=== PATIENT | female | born 1930 | race Caucasian/White ===

== ENCOUNTER 2016-10-16 21:20 | Emergency (ER) | payer OTHER ==
[2016-10-16 21:31] VITALS: BP 140/83; PULSE 69; TEMP 97.6; BMI 28.2
--- NOTE | 2016-10-16 22:26 | PDOC ---
History of Present Illness - General History Source: Patient Exam Limitations: No Limitations - History of Present Illness Initial Comments: 10/17/16 00:02 The patient is an 86 year old female with history of hypertension, hyperlipidemia, diabetes, COPD, GERD, emphysema, and dementia who presents to the ED with vomiting and abdominal pain. As per daughter, the patient was drinking hot chocolate with bread and shortly after she started vomiting. She reports 3 episodes of vomiting since 5 pm today. She reports generalized weakness and chills. She notes that she is feeling gassy. She notes that she did not get the flu shot this year. She denies fever, diarrhea, constipation, dysuria, hesitancy, urgency or hematuria. Surgical history: appendicitis, uterine fibroid PCP - Dr. Kendrick <Angela Dodson - Last Filed: 10/17/16 00:02> <Venecia Mederos - Last Filed: 10/17/16 04:51> - General Chief Complaint: Nausea/Vomiting Stated Complaint: VOMITING/SHAKING Time Seen by Provider: 10/16/16 22:26 Past History <Angela Dodson - Last Filed: 10/17/16 00:02> - Past Medical History COPD: Yes Diabetes: Yes GI Disorders: Yes (GERD) HTN: Yes Hypercholesterolemia: Yes Suicide Attempt (Hx): No - Surgical History Abdominal Surgery: Yes (FIBROID REMOVED) Appendectomy: Yes - Immunization History Immunization Up to Date: No - Psycho/Social/Smoking Cessation Hx Anxiety: No Suicidal Ideation: No Smoking Status: No Smoking History: Never smoked Have you smoked in the past 12 months: No Number of Cigarettes Smoked Daily: 0 If you are a former smoker, when did you quit?: 30 years ago Information on smoking cessation initiated: No Hx Alcohol Use: No Drug/Substance Use Hx: No Substance Use Type: None Hx Substance Use Treatment: No <Venecia Mederos - Last Filed: 10/17/16 04:51> - Past Medical History Allergies/Adverse Reactions: Allergies Allergy/AdvReac Type Severity Reaction Status Date / Time No Known Allergies Allergy Verified 10/16/16 21:27 Home Medications: Ambulatory Orders Aspirin [ASA -] 81 mg PO DAILY 10/21/15 Quetiapine Fumarate [Seroquel -] 25 mg PO HS 10/21/15 Ranitidine [Zantac -] 150 mg PO DAILY 10/21/15 Rivastigmine Tartrate [Rivastigmine] 4.5 mg PO DAILY 10/21/15 Simvastatin [Zocor -] 20 mg PO DAILY 10/21/15 Trazodone HCl [Desyrel -] 50 mg PO HS 10/21/15 Valsartan [Diovan] 160 mg PO DAILY 10/21/15 Cefuroxime Axetil [Ceftin -] 500 mg PO BID #10 tablet 10/23/15 Metoclopramide HCl [Reglan -] 10 mg PO TID #21 tablet 10/17/16 Review of Systems - Review of Systems Able to Perform ROS?: Yes Comments:: 10/17/16 00:03 GENERAL/CONSTITUTIONAL: +weakness. No fever or chills. HEAD, EYES, EARS, NOSE AND THROAT: No change in vision. No ear pain or discharge. No sore throat. CARDIOVASCULAR: No chest pain or shortness of breath. RESPIRATORY: No cough, wheezing, or hemoptysis. GASTROINTESTINAL: +nausea, +vomiting. No diarrhea or constipation. GENITOURINARY: No dysuria, frequency, or change in urination. MUSCULOSKELETAL: No joint or muscle swelling or pain. No neck or back pain. SKIN: No rash NEUROLOGIC: No headache, vertigo, loss of consciousness, or change in strength/ sensation. ENDOCRINE: No increased thirst. No abnormal weight change. HEMATOLOGIC/LYMPHATIC: No anemia, easy bleeding, or history of blood clots. ALLERGIC/IMMUNOLOGIC: No hives or skin allergy. <Angela Dodson - Last Filed: 10/17/16 00:02> *Physical Exam - Vital Signs Last Vital Signs Temp Pulse Resp BP Pulse Ox 97.6 F 69 14 140/83 98 10/16/16 21:27 10/16/16 21:27 10/16/16 21:27 10/16/16 21:27 10/16/16 21:27 - Physical Exam Comments: 10/17/16 00:04 GENERAL: Awake, alert, and fully oriented, in no acute distress HEAD: No signs of trauma EYES: PERRLA, EOMI, sclera anicteric, conjunctiva clear ENT: Auricles normal inspection, hearing grossly normal, nares patent, oropharynx clear without exudates. Moist mucosa NECK: Normal ROM, supple, no lymphadenopathy, JVD, or masses LUNGS: Breath sounds equal, clear to auscultation bilaterally. No wheezes, and no crackles HEART: Regular rate and rhythm, normal S1 and S2, no murmurs, rubs or gallops ABDOMEN: Soft, nontender, normoactive bowel sounds. No guarding, no rebound. No masses EXTREMITIES: Normal range of motion, no edema. No clubbing or cyanosis. No cords, erythema, or tenderness NEUROLOGICAL: Cranial nerves II through XII grossly intact. Normal speech, normal gait SKIN: Warm, Dry, normal turgor, no rashes or lesions noted. <Angela Dodson - Last Filed: 10/17/16 00:02> - Vital Signs Last Vital Signs Temp Pulse Resp BP Pulse Ox 97.6 F 69 14 140/83 98 10/16/16 21:27 10/16/16 21:27 10/16/16 21:27 10/16/16 21:27 10/16/16 21:27 <Venecia Mederos - Last Filed: 10/17/16 04:51> ED Treatment Course - LABORATORY CBC & Chemistry Diagram: 10/16/16 23:30 10/16/16 23:30 - ADDITIONAL ORDERS Additional order review: 10/16/16 23:30 RBC 4.56 MCV 89.9 MCHC 32.9 RDW 14.1 MPV 7.9 Neutrophils % 90.3 H Lymphocytes % 6.1 L Monocytes % 2.8 L Eosinophils % 0.3 D Basophils % 0.5 - Medications Given in the ED: ED Medications Discontinued Medications Generic Name Dose Route Start Last Admin Trade Name Luis PRN Reason Stop Dose Admin Famotidine/Sodium Chloride 50 mls @ 100 mls/hr 10/16/16 23:26 10/16/16 23:56 Pepcid 20 Mg Premixed Ivpb - IVPB 10/16/16 23:55 100 mls/hr ONCE ONE Administration Metoclopramide HCl 10 mg 10/16/16 23:26 10/16/16 23:48 Reglan Injection - IVPB 10/16/16 23:27 10 mg ONCE ONE Administration Sodium Chloride 1,000 ml 10/16/16 23:26 10/16/16 23:47 Normal Saline - IV 10/16/16 23:27 1,000 ml ONCE ONE Administration <Angela Dodson - Last Filed: 10/17/16 00:02> - LABORATORY CBC & Chemistry Diagram: 10/16/16 23:30 10/16/16 23:30 <Venecia Mederos - Last Filed: 10/17/16 04:51> Medical Decision Making - Medical Decision Making 10/17/16 04:47 Pt vomited a few times after drinking cocoa and eating bread. She experienced chills. SHe wants to make sure she is okay. She states that she has no generalized weakness. SHe has no diarrhea, and no fever. SHe has no systemic symptoms. She was hydrated in the ER with 1L NSS and she is feeling better ( urine demonstrated ketones in the urine). All labs are normal. CXR is normal. 10/17/16 04:50 Pt discharged home with her family. <Venecia Mederos - Last Filed: 10/17/16 04:51> *DC/Admit/Observation/Transfer - Attestations Scribe Attestion: 10/17/16 00:04 Documentation prepared by DELANO Vasques, acting as medical insurance verifier for Venecia Mederos MD. <Angela Dodson - Last Filed: 10/17/16 00:02> - Discharge Dispostion Admit: No <Venecia Mederos - Last Filed: 10/17/16 04:51> Diagnosis at time of Disposition: Nausea & vomiting - Discharge Dispostion Disposition: HOME Condition at time of disposition: Stable - Prescriptions Prescriptions: Metoclopramide HCl [Reglan -] 10 mg PO TID #21 tablet - Referrals Referrals: Chivo Kendrick [Primary Care Provider] - - Patient Instructions Printed Discharge Instructions: DI for Nausea -- Adult, DI for Vomiting -- Adult
[2016-10-16] MEDS ORDERED: SODIUM CHLORIDE 0.9% 500 ML INFUS.BAG IV ONE (23:26)
[2016-10-16] MEDS ORDERED: METOCLOPRAMIDE HCL INJECTION 10 MG/2 ML VIAL IVPB ONE (23:26)
[2016-10-16] MEDS ORDERED: FAMOTIDINE 20 MG/50 ML IVPB 50 ML IVPB ONE ×2 (23:26→23:37)
[2016-10-16] MEDS ORDERED: METOCLOPRAMIDE HCL INJECTION 10 MG/2 ML VIAL ONE (23:36)
[2016-10-16 23:55] LABS: BASOPHIL 0.5 % (0-2.0); EOSINOPHIL 0.3 % (0-4.5); MCH 29.6 pg (25.7-33.7); MCHC 32.9 g/dl (32.0-36.0); MEAN CELL VOLUME 89.9 fl (80-96); MEAN PLT VOLUME 7.9 fl (7.5-11.1); NEUTROPHILS 90.3 % (42.8-82.8); PLATELET COUNT 253 K/MM3 (134-434); RDW 14.1 % (11.6-15.6); WHITE BLOOD COUNT 7.9 K/mm3 (4.0-10.0)
[2016-10-16 23:58] LABS: URINE APPEARANCE CLEAR; URINE BILIRUBIN NEGATIVE (NEGATIVE); URINE BLOOD NEGATIVE (NEGATIVE); URINE COLOR YELLOW; URINE GLUCOSE (UA) NEGATIVE (NEGATIVE); URINE KETONE 1+ (NEGATIVE); URINE LEUK ESTERASE NEGATIVE (NEGATIVE); URINE NITRITE NEGATIVE (NEGATIVE); URINE UROBILINOGEN NEGATIVE E.U./dl (0.2-1.0)
[2016-10-17 00:18] LABS: ALBUMIN 4.2 g/dl (3.4-5.0); ALK PHOS 87 U/L (45-117); ANION GAP 9 (8-16); BILIRUBIN,TOTAL 0.4 mg/dL (0.2-1.0); CALCIUM 8.8 mg/dL (8.5-10.1); CO2 29 mmol/L (21-32); CREATININE 0.6 mg/dL (0.55-1.02); GLUCOSE,RANDOM 127 mg/dL (74-106); SGOT/AST 20 U/L (15-37); SGPT/ALT 18 U/L (12-78)
[2016-10-17 00:22] LABS: URINE PROTEIN 1+ (NEGATIVE)
[2016-10-17 00:25] LABS: CHOLESTEROL 162 mg/dL (50-200)
[2016-10-17 00:28] LABS: TROPONIN I 0.04 ng/ml (0.00-0.05)
[2016-10-17 00:49] LABS: URINE BACTERIA RARE /hpf (NONE SEEN); URINE MUCUS MODERATE; URINE RBC 43 /hpf (0-3); URINE WBC 2 /hpf (3-5)
[2016-10-17 19:44] LABS: LDL CHOLESTEROL (ONLY SJRH) 85 mg/dL (5-100)
== END 2016-10-17 01:56 | disposition home or self-care (01) ==
LOC: JER 21:20
PROC: 3E033GC Introduction of Other Therapeutic Substance into Peripheral Vein, Percutaneous Approach (ICD-10-PCS; principal; 2016-10-16)
DX: R11.2 Nausea with vomiting, unspecified (principal); I10 Essential (primary) hypertension; E11.9 Type 2 diabetes mellitus without complications; E78.00 Pure hypercholesterolemia, unspecified; J44.9 Chronic obstructive pulmonary disease, unspecified; K21.9 Gastro-esophageal reflux disease without esophagitis
CPT/HCPCS: 36415; 71010-TC; 80053; 80061; 81003; 81015; 82550; 83036; 83721; 84484; 85025; 96365; 96375; 99281-25; 99282-25

== ENCOUNTER 2017-05-02 12:30 | Emergency (ER) | payer OTHER ==
[2017-05-02 12:43] VITALS: BP 105/64; PULSE 78; TEMP 98.7; BMI 29.1
--- NOTE | 2017-05-02 13:01 | PDOC ---
History of Present Illness <Bethany Oliver - Last Filed: 05/02/17 16:11> - General History Source: Patient Exam Limitations: No Limitations, Dementia - History of Present Illness Initial Comments: 05/02/17 13:01 Patient is an 87 year old female with history of dementia, COPD, DM, HTN, HLD and GERD presenting with decreased appetite, poor PO intake, nausea, vomiting and spitting for several weeks. According to the family the patient has a long history with a poor appetite that has recently gotten worse. They claim patient had no PO for the last 4 days and anything she attempts to eat she spits out. Also endorse patient refusal to swallow secretions. Patient claims she doesn't have any problems swallowing but does not want to eat because she does not have an appetite. Patient was seen by PCP last week and diagnosed with a UTI but has refused to take the antibiotic. Patient endorses abdominal pain; denies fever, chills, sob, cp and dysurea. <Skyler Engel - Last Filed: 05/08/17 10:57> - General Chief Complaint: Pain Stated Complaint: PAIN Time Seen by Provider: 05/02/17 12:57 Past History <Bethany Oliver - Last Filed: 05/02/17 16:11> - Past Medical History COPD: Yes Dementia: Yes Diabetes: Yes GI Disorders: Yes (GERD) HTN: Yes Hypercholesterolemia: Yes Suicide Attempt (Hx): No - Surgical History Abdominal Surgery: Yes (FIBROID REMOVED) Appendectomy: Yes - Immunization History Immunization Up to Date: No - Psycho/Social/Smoking Cessation Hx Anxiety: No Suicidal Ideation: No Smoking Status: No Smoking History: Never smoked Have you smoked in the past 12 months: No Number of Cigarettes Smoked Daily: 0 If you are a former smoker, when did you quit?: 30 years ago Information on smoking cessation initiated: No Hx Alcohol Use: No Drug/Substance Use Hx: No Substance Use Type: None Hx Substance Use Treatment: No <Skyler Engel - Last Filed: 05/08/17 10:57> - Past Medical History Allergies/Adverse Reactions: Allergies Allergy/AdvReac Type Severity Reaction Status Date / Time No Known Allergies Allergy Verified 05/02/17 12:40 Home Medications: Ambulatory Orders Aspirin [ASA -] 81 mg PO DAILY 10/21/15 Ranitidine [Zantac -] 150 mg PO DAILY 10/21/15 Simvastatin [Zocor -] 20 mg PO DAILY 10/21/15 Trazodone HCl [Desyrel -] 50 mg PO HS 10/21/15 Valsartan [Diovan] 160 mg PO DAILY 10/21/15 Donepezil HCl [Aricept -] 10 mg PO DAILY 05/02/17 Review of Systems - Review of Systems Able to Perform ROS?: Yes Is the patient limited Turkmen proficient: Yes Constitutional: Yes: Loss of Appetite. No: Chills, Fever, Weight Stable ( Family endorsed weight loss) Respiratory: No: Cough, Shortness of Breath Cardiac (ROS): No: Chest Pain ABD/GI: Yes: Nausea, Vomiting. No: Constipated, Diarrhea : No: Dysuria <Skyler Engel - Last Filed: 05/08/17 10:57> *Physical Exam - Vital Signs Last Vital Signs Temp Pulse Resp BP Pulse Ox 98.7 F 78 18 105/64 100 05/02/17 12:40 05/02/17 12:40 05/02/17 12:40 05/02/17 12:40 05/02/17 12:40 <Bethany Oliver - Last Filed: 05/02/17 16:11> - Vital Signs Last Vital Signs Temp Pulse Resp BP Pulse Ox 98.7 F 78 18 105/64 100 05/02/17 12:40 05/02/17 12:40 05/02/17 12:40 05/02/17 12:40 05/02/17 12:40 - Physical Exam General Appearance: Yes: Nourished, Appropriately Dressed, Other. No: Apparent Distress HEENT: positive: EOMI, ZACK, Normal ENT Inspection, Other (Moist oral mucosa, Patient spitting secretions, Refuses to swallow) Neck: positive: Supple. negative: Lymphadenopathy (R), Lymphadenopathy (L) Respiratory/Chest: positive: Lungs Clear, Normal Breath Sounds. negative: Respiratory Distress Cardiovascular: positive: Regular Rhythm, Regular Rate. negative: Edema Gastrointestinal/Abdominal: positive: Normal Bowel Sounds, Tender (diffusly, reduced on distraction), Soft. negative: Distended, Guarding, Rebound Musculoskeletal: positive: Normal Inspection, CVA Tenderness (R). negative: CVA Tenderness (L) Neurologic: positive: nurse practitioner physicians assistant II-XII NML intact, Fully Oriented, Alert, Normal Mood/ Affect, Other (Patient refuses to swallow secretions) <Skyler Engel - Last Filed: 05/08/17 10:57> ED Treatment Course - LABORATORY CBC & Chemistry Diagram: 05/02/17 14:30 05/02/17 14:30 - ADDITIONAL ORDERS Additional order review: Laboratory Results 05/02/17 05/02/17 15:04 14:30 Sodium 138 Potassium 4.8 D Chloride 101 Carbon Dioxide 28 Anion Gap 9 BUN 18 D Creatinine 0.8 D Creat Clearance w eGFR > 60 Random Glucose 128 H Calcium 9.2 Total Bilirubin 0.4 AST 20 ALT 19 Alkaline Phosphatase 80 Total Protein 7.4 Albumin 4.5 Urine Color Yellow Urine Appearance Slcloudy Urine pH 5.0 Urine Protein Negative Urine Glucose (UA) Negative Urine Ketones Negative Urine Blood Negative Urine Nitrite Negative Urine Bilirubin Negative Urine Urobilinogen 2.0 H Ur Leukocyte Esterase Negative 05/02/17 14:30 RBC 4.74 MCV 91.0 MCHC 32.4 RDW 14.4 MPV 7.6 Neutrophils % 73.7 Lymphocytes % 15.8 D Monocytes % 7.5 D Eosinophils % 2.0 D Basophils % 1.0 - Medications Given in the ED: ED Medications Discontinued Medications Generic Name Dose Route Start Last Admin Trade Name Freq PRN Reason Stop Dose Admin Sodium Chloride 1,000 mls @ 1,000 mls/hr 05/02/17 13:39 05/02/17 15:10 Normal Saline - IV 05/02/17 14:38 1,000 mls/hr ASDIR STA Administration <eBthany Oliver - Last Filed: 05/02/17 16:11> - LABORATORY CBC & Chemistry Diagram: 05/02/17 14:30 05/02/17 14:30 - RADIOLOGY Radiograph Interpretation: [id number] CT/ABDOMEN PELVIS CT WITH CONTR Abdomen and pelvis CT (with intravenous contrast) Clinical information: abdominal pain, nausea, emesis Multiplanar imaging was performed following the intravenous administration of nonionic contrast. As requested oral contrast was not administered. Evaluation is somewhat limited due to persistent motion artifact. The patient was apparently unable to cooperate at this time. There is no obvious evidence of pneumoperitoneum. No free intraperitoneal fluid or bowel obstruction is visualized. Allowing for motion artifact no definite interval change is identified in comparison to a prior CT study of 09/21/2015. A right inguinal hernia is noted containing nondilated small bowel. A left inguinal hernia is seen containing fat only. There is extensive left-sided colonic diverticulosis without obvious acute diverticulitis. 0.7 cm right hepatic lobe cyst. The spleen, pancreas, gallbladder, adrenal glands and kidneys demonstrate no obvious abnormality. Absent versus atrophic uterus. No obvious intrapelvic pathology is seen. There is no aortic aneurysm. No definite lymphadenopathy is noted. The appendix is not definitely visualized. No obvious indirect CT signs of acute appendicitis are seen. Impression: No obvious acute pathology is identified allowing for motion artifact as discussed above. There has been no definite interval change comparison to a prior CT study 2015. Right inguinal hernia containing nondilated small bowel. Left inguinal hernia containing fat only. Extensive colonic diverticulosis. <Skyler Engel - Last Filed: 05/08/17 10:57> Medical Decision Making - Medical Decision Making 05/02/17 16:11 focused ED screening ultasound renal, / GB indication L flank pain right upper quadrant scanned with curvilinear probe. no gallstones, no wall thickening or edema. no pericholecystic fluid, neg sonographic tinajero's. wall : 2 mm CBD : <2mm impression: normal gallbladder renal ultrasound , indication : flank pain bilateral kidneys scanned in two planes. no cyst, no hydronephrosis. bladder nondistended impression: normal renal ultrasound aorta scanned in transverse and longitudinal views proximal , mid and distal aorta all measured less < 2cm impression: no AAA, normal aorta ultrasound. cirrex/ gorge <Bethany Oliver - Last Filed: 05/02/17 16:11> - Medical Decision Making 05/02/17 13:01 87 year old female with history of dementia and GERD presenting with several weeks of decreased PO, nausea, vomiting and perfuse spitting. Ddx includes but is not limited to upper GI obstruction, strictures, SBO, GERD, psychogenic, Fluids CBC CMP UA CT Abdomen and Pelvis with contrast, oral contrast if tolerated US Right Renal to evaluate for Pyelo 05/02/17 14:05 Patient easily tolerated 1/2 pint OJ without coughing, regurgitation or complaint 05/02/17 14:40 Patient finished the oral contrast without complaint. 05/02/17 16:19 CBC WBC 5.9 K/mm3 (4.0-10.0) 05/02/17 14:30 RBC 4.74 M/mm3 (3.60-5.2) 05/02/17 14:30 Hgb 14.0 GM/dL (10.7-15.3) 05/02/17 14:30 Hct 43.2 % (32.4-45.2) 05/02/17 14:30 MCV 91.0 fl (80-96) 05/02/17 14:30 MCH 29.5 pg (25.7-33.7) 05/02/17 14:30 MCHC 32.4 g/dl (32.0-36.0) 05/02/17 14:30 RDW 14.4 % (11.6-15.6) 05/02/17 14:30 Plt Count 291 K/MM3 (134-434) 05/02/17 14:30 MPV 7.6 fl (7.5-11.1) 05/02/17 14:30 Neutrophils % 73.7 % (42.8-82.8) 05/02/17 14:30 Lymphocytes % 15.8 % (8-40) D 05/02/17 14:30 Monocytes % 7.5 % (3.8-10.2) D 05/02/17 14:30 Eosinophils % 2.0 % (0-4.5) D 05/02/17 14:30 Basophils % 1.0 % (0-2.0) 05/02/17 14:30 Within normal limits CMP Sodium 138 mmol/L (136-145) 05/02/17 14:30 Potassium 4.8 mmol/L (3.5-5.1) D 05/02/17 14:30 Chloride 101 mmol/L (98-107) 05/02/17 14:30 Carbon Dioxide 28 mmol/L (21-32) 05/02/17 14:30 Anion Gap 9 (8-16) 05/02/17 14:30 BUN 18 mg/dL (7-18) D 05/02/17 14:30 Creatinine 0.8 mg/dL (0.55-1.02) D 05/02/17 14:30 Creat Clearance w eGFR > 60 (>60) 05/02/17 14:30 Random Glucose 128 mg/dL (74-106) H 05/02/17 14:30 Calcium 9.2 mg/dL (8.5-10.1) 05/02/17 14:30 Total Bilirubin 0.4 mg/dL (0.2-1.0) 05/02/17 14:30 AST 20 U/L (15-37) 05/02/17 14:30 ALT 19 U/L (12-78) 05/02/17 14:30 Alkaline Phosphatase 80 U/L (45-117) 05/02/17 14:30 Total Protein 7.4 g/dl (6.4-8.2) 05/02/17 14:30 Albumin 4.5 g/dl (3.4-5.0) 05/02/17 14:30 Grossly within normal limits, no concerns Urine Test Results Urine Color Yellow 05/02/17 15:04 Urine Appearance Slcloudy 05/02/17 15:04 Urine pH 5.0 (5.0-8.0) 05/02/17 15:04 Urine Protein Negative (NEGATIVE) 05/02/17 15:04 Urine Glucose (UA) Negative (NEGATIVE) 05/02/17 15:04 Urine Ketones Negative (NEGATIVE) 05/02/17 15:04 Urine Blood Negative (NEGATIVE) 05/02/17 15:04 Urine Nitrite Negative (NEGATIVE) 05/02/17 15:04 Urine Bilirubin Negative (NEGATIVE) 05/02/17 15:04 Ur Leukocyte Esterase Negative (NEGATIVE) 05/02/17 15:04 No indication of infection CT Impression: No obvious acute pathology, no definite interval change from prior CT study 09/21/2015. Patient is PO tolerant with no acute abnormalities, no dysphagia, recommended PCP follow up, return precautions given <Skyler Engel - Last Filed: 05/08/17 10:57> *DC/Admit/Observation/Transfer <Bethany Oliver - Last Filed: 05/02/17 16:11> - Discharge Dispostion Admit: No - Attestations Physician Attestion: 05/02/17 19:27 I, Dr. Skyler Engel, attest that this document has been prepared under my direction and personally reviewed by me in its entirety. I further attest, that it accurately reflects all work, treatment, procedures and medical decision -making performed by me. <Skyler Engel - Last Filed: 05/08/17 10:57> Diagnosis at time of Disposition: Poor appetite Abdominal pain Qualifiers: Abdominal location: generalized Qualified Code(s): R10.84 - Generalized abdominal pain - Referrals Referrals: Chivo Kendrick [Primary Care Provider] - - Patient Instructions Printed Discharge Instructions: DI for Abdominal Pain-Adult, DI for Poor Appetite Additional Instructions: Thank you for trusting us with your health care today. I hope you were satisfied with the care you received. Often in the emergency department we do not find the exact cause of a problem but focus on ruling out any serious problems. The lab work and imaging we performed today did not show anything that was immediately concerning. However, it is important that you follow up with a primary care physician for a more complete workup than we are able to do in the emergency department. You can provide your doctor with the lab and imaging reports we are providing to you. As we discussed, please return to the emergency department if your symptoms significantly worsen or you develop any concerning signs including fever, confusion or headache that will not resolve with medication. If you are unable to safely drive yourself, please call 911 immediately. Print Language: GREEK
[2017-05-02] MEDS ORDERED: SODIUM CHLORIDE 1,000 ML IV STA (13:39)
[2017-05-02 14:54] LABS: MCH 29.5 pg (25.7-33.7); MCHC 32.4 g/dl (32.0-36.0); MEAN PLT VOLUME 7.6 fl (7.5-11.1); NEUTROPHILS 73.7 % (42.8-82.8); PLATELET COUNT 291 K/MM3 (134-434); RDW 14.4 % (11.6-15.6); WHITE BLOOD COUNT 5.9 K/mm3 (4.0-10.0)
[2017-05-02 15:07] LABS: ALBUMIN 4.5 g/dl (3.4-5.0); ALK PHOS 80 U/L (45-117); ANION GAP 9 (8-16); BILIRUBIN,TOTAL 0.4 mg/dL (0.2-1.0); CALCIUM 9.2 mg/dL (8.5-10.1); CO2 28 mmol/L (21-32); CREATININE 0.8 mg/dL (0.55-1.02); GLUCOSE,RANDOM 128 mg/dL (74-106); SGOT/AST 20 U/L (15-37); SGPT/ALT 19 U/L (12-78); TOT PROT 7.4 g/dl (6.4-8.2)
--- NOTE | 2017-05-02 15:21 | PDOC ---
Attending Attestation - Resident Resident Name: Toro,Jon - ED Attending Attestation I have performed the following: I have examined & evaluated the patient, The case was reviewed & discussed with the resident, I agree w/resident's findings & plan, Exceptions are as noted - HPI HPI: 05/02/17 15:16 87 F with HTN, HLD, DM, COPD, GERD, dementia presents to ER with several weeks of decreased PO intake and spitting up. Per family, pt has had decreased appetite for a long time, but this has worsened recently. She has no desire to eat, and when she does, she often spits it out. Family denies that pt has vomited. Pt has not complained of abdominal pain. No abdominal distention. No F/ C. Of note, pt was diagnosed with a UTI last week but has not been able to take her antibiotics because she refuses to swallow them. - Physicial Exam PE: 05/02/17 15:21 "GENERAL: Awake, alert, and fully oriented, in no acute distress HEAD: No signs of trauma EYES: PERRLA, EOMI, sclera anicteric, conjunctiva clear ENT: Auricles normal inspection, hearing grossly normal, nares patent, oropharynx clear without exudates. Moist mucosa NECK: Normal ROM, supple, no lymphadenopathy, JVD, or masses LUNGS: Breath sounds equal, clear to auscultation bilaterally. No wheezes, and no crackles HEART: Regular rate and rhythm, normal S1 and S2, no murmurs, rubs or gallops ABDOMEN: Soft, mild diffuse TTP, normoactive bowel sounds. No guarding, no rebound. No masses, + R CVAT EXTREMITIES: Normal range of motion, no edema. No clubbing or cyanosis. No cords, erythema, or tenderness NEUROLOGICAL: Cranial nerves II through XII grossly intact. Normal speech, normal gait SKIN: Warm, Dry, normal turgor, no rashes or lesions noted. - Medical Decision Making 05/02/17 15:21 87 F with poor PO tolerance. Unclear from history whether pt is vomiting or simply spitting. Given diffuse abdominal tenderness, will obtain CTAP to r/o obstructive process. - Labs, UA - CTAP
[2017-05-02 15:45] LABS: URINE APPEARANCE SLCLOUDY; URINE BILIRUBIN NEGATIVE (NEGATIVE); URINE BLOOD NEGATIVE (NEGATIVE); URINE COLOR YELLOW; URINE GLUCOSE (UA) NEGATIVE (NEGATIVE); URINE KETONE NEGATIVE (NEGATIVE); URINE LEUK ESTERASE NEGATIVE (NEGATIVE); URINE NITRITE NEGATIVE (NEGATIVE); URINE PROTEIN NEGATIVE (NEGATIVE)
== END 2017-05-02 19:41 | disposition home or self-care (01) ==
LOC: JER 12:30
PROC: 3E0337Z Introduction of Electrolytic and Water Balance Substance into Peripheral Vein, Percutaneous Approach (ICD-10-PCS; principal; 2017-05-02)
DX: R10.84 Generalized abdominal pain (principal); R63.0 Anorexia; Z68.29 Body mass index [BMI] 29.0-29.9, adult; I10 Essential (primary) hypertension; E11.9 Type 2 diabetes mellitus without complications; K21.9 Gastro-esophageal reflux disease without esophagitis; E78.00 Pure hypercholesterolemia, unspecified; J44.9 Chronic obstructive pulmonary disease, unspecified; F03.90 Unspecified dementia, unspecified severity, without behavioral disturbance, psychotic disturbance, mood disturbance, and anxiety
CPT/HCPCS: 36415; 74177-TC; 80053; 81003; 85025; 99283-25

== ENCOUNTER 2017-12-03 17:35 | Inpatient (IN) | payer OTHER ==
[2017-12-03] MEDS ORDERED: SODIUM CHLORIDE 1,000 ML IV STA (18:07)
--- NOTE | 2017-12-03 18:35 | PDOC ---
History of Present Illness - General History Source: Patient, Family Exam Limitations: No Limitations <Nacho Paiz - Last Filed: 12/03/17 18:35> - General Exam Limitations: Dementia - History of Present Illness Initial Comments: 12/03/17 18:41 Patient is an 87 year old female with a history of dementia, COPD, DM, HTN, HLD and GERD who is presenting with syncopal episode today. Patients family member states that her was walking her to the bathroom when she fainted and fell. He was able to catch her and she did not hit her head. According to her family member, this has happened before 3-4 months ago. Family reports that she was out for 2 minutes but was confused when she woke up for about 1 minute. Family also reports decreased PO intake/appetite and sleep lately. Her family member denies cough, vomiting,and diarrhea. Allergies: NKDA Neurologist: Dr. Buchanan PCP: Chivo Kendrick <Nicki Osei - Last Filed: 12/03/17 18:41> <Venecia Mederos - Last Filed: 12/04/17 01:46> - General Chief Complaint: Syncope/Near Syncope Stated Complaint: WEAKNESS Time Seen by Provider: 12/03/17 17:47 Past History - Past Medical History COPD: Yes Dementia: Yes Diabetes: Yes GI Disorders: Yes (GERD) HTN: Yes Hypercholesterolemia: Yes - Surgical History Abdominal Surgery: Yes (FIBROID REMOVED) Appendectomy: Yes - Immunization History Immunization Up to Date: No - Suicide/Smoking/Psychosocial Hx Smoking Status: No Smoking History: Never smoked Have you smoked in the past 12 months: No Number of Cigarettes Smoked Daily: 0 If you are a former smoker, when did you quit?: 30 years ago Hx Alcohol Use: No Drug/Substance Use Hx: No Substance Use Type: None Hx Substance Use Treatment: No <Nacho Paiz - Last Filed: 12/03/17 18:35> <Nicki Osei - Last Filed: 12/03/17 18:41> <Venecia Mederos - Last Filed: 12/04/17 01:46> - Past Medical History Allergies/Adverse Reactions: Allergies Allergy/AdvReac Type Severity Reaction Status Date / Time No Known Allergies Allergy Verified 12/03/17 17:41 Home Medications: Ambulatory Orders Aspirin [ASA -] 81 mg PO DAILY 02/03/16 Ranitidine [Zantac -] 150 mg PO DAILY 10/21/15 Simvastatin [Zocor -] 20 mg PO DAILY 10/21/15 Valsartan [Diovan] 160 mg PO DAILY 10/21/15 traZODone HCL [Desyrel -] 50 mg PO HS 10/21/15 Donepezil HCl [Aricept -] 10 mg PO DAILY 05/02/17 Review of Systems - Review of Systems Able to Perform ROS?: No (limited due to dementia) <Nicki Osei - Last Filed: 12/03/17 18:41> *Physical Exam - Vital Signs Last Vital Signs Temp Pulse Resp BP Pulse Ox 97.9 F 58 L 18 107/62 98 12/03/17 17:43 12/03/17 17:43 12/03/17 17:43 12/03/17 17:43 12/03/17 17:43 <Nacho Paiz - Last Filed: 12/03/17 18:35> - Vital Signs Last Vital Signs Temp Pulse Resp BP Pulse Ox 97.9 F 58 L 18 107/62 98 12/03/17 17:43 12/03/17 17:43 12/03/17 17:43 12/03/17 17:43 12/03/17 17:43 - Physical Exam Comments: 12/03/17 18:42 GENERAL: Awake, alert, and oriented x 2 - her baseline. HEAD: No signs of trauma EYES: PERRLA, EOMI, sclera anicteric, conjunctiva clear ENT: Auricles normal inspection, hearing grossly normal, nares patent, oropharynx clear without exudates. Moist mucosa NECK: Normal ROM, supple, no lymphadenopathy, JVD, or masses LUNGS: Breath sounds equal, clear to auscultation bilaterally. No wheezes, and no crackles HEART: Regular rate and rhythm, normal S1 and S2, no murmurs, rubs or gallops ABDOMEN: Soft, nontender, normoactive bowel sounds. No guarding, no rebound. No masses EXTREMITIES: No edema. No clubbing or cyanosis. No cords, erythema, or tenderness. Strength 5/5 all 4 extremities. Moves all extremities spontaneously. NEUROLOGICAL: Cranial nerves II through XII grossly intact. SKIN: Warm, Dry, normal turgor, no rashes or lesions noted. <Nicki Osei - Last Filed: 12/03/17 18:41> - Vital Signs Last Vital Signs Temp Pulse Resp BP Pulse Ox 97.9 F 58 L 18 107/62 98 12/03/17 17:43 12/03/17 17:43 12/03/17 17:43 12/03/17 17:43 12/03/17 17:43 <Venecia Mederos - Last Filed: 12/04/17 01:46> Heart Score/ECG Review #1 ECG reviewed & interpreted by me at: 18:05 12/03/17 18:33 NSR 58, T wave flat III, avF, V5, no std/komal, QTC 459 msec <Nacho Paiz - Last Filed: 12/03/17 18:35> ED Treatment Course - RADIOLOGY Radiology Studies Ordered: Category Date Time Status HEAD CT WITHOUT CONTRAST [CT] Stat CT Scan 12/03/17 18:06 Ordered CHEST X-RAY PORTABLE* [RAD] Stat Radiology 12/03/17 18:06 Taken <Nacho Paiz - Last Filed: 12/03/17 18:35> - LABORATORY CBC & Chemistry Diagram: 12/03/17 20:42 12/03/17 20:42 - ADDITIONAL ORDERS Additional order review: Laboratory Results 12/03/17 12/03/17 20:42 20:42 PT with INR 11.20 INR 0.99 PTT (Actin FS) 26.2 L Sodium 144 Potassium 4.2 Chloride 110 H Carbon Dioxide 27 Anion Gap 7 L BUN 13 Creatinine 0.7 Creat Clearance w eGFR > 60 Random Glucose 122 H Calcium 7.5 L Phosphorus 3.5 Magnesium 2.1 Total Bilirubin 0.2 D AST 17 ALT 15 Alkaline Phosphatase 98 Creatine Kinase 47 Troponin I < 0.02 Total Protein 5.6 L Albumin 3.2 L 12/03/17 20:42 RBC 4.10 MCV 91.7 MCHC 33.6 RDW 14.2 MPV 7.5 Neutrophils % 83.7 H Lymphocytes % 9.3 D Monocytes % 5.6 Eosinophils % 0.9 Basophils % 0.5 - Medications Given in the ED: ED Medications Discontinued Medications Generic Name Dose Route Start Last Admin Trade Name Freq PRN Reason Stop Dose Admin Sodium Chloride 1,000 mls @ 1,000 mls/hr 12/03/17 18:07 12/03/17 18:35 Normal Saline - IV 12/03/17 19:06 1,000 mls/hr ASDIR STA Administration <Venecia Mederos - Last Filed: 12/04/17 01:46> Medical Decision Making - Medical Decision Making 12/03/17 18:33 A portion of this note was documented by scribe services under my direction. I have reviewed the details of the note, within reason, and agree with the documentation with the following case summary and management plan written by me. Patient treated in the ED. Nursing notes are reviewed and incorporated into the medical decision-making. Vital signs reviewed. Peripheral IV access obtained by the nurse, laboratory studies are drawn and sent, reviewed and interpreted by myself. Vital Signs Temp Pulse Resp BP Pulse Ox 97.9 F 58 L 18 107/62 98 12/03/17 17:43 12/03/17 17:43 12/03/17 17:43 12/03/17 17:43 12/03/17 17:43 87-year-old female with past medical history of hypertension, dementia presents with syncope. The patient was in her usual state health. Was with the patient's son-in-law when the patient suddenly syncopized for approximately 1 minute. Fell into the son-in-law's hands. No head trauma or injuries. This was weakness. No seizure-like activity. The patient woke up somewhat mildly confused but immediately Became back to baseline. No recent illnesses, fevers, chills, cough, vomiting, diarrhea. Patient reports chronic poor appetite but this is nothing new to her. Came to the ED for evaluation. Given her age and her risk factors, we'll need to rule out cardiac etiology. We' ll obtain labs, telemetry. Patient's clinical headache. We'll obtain a head CT. Ultimately admit the patient to hospital for telemetry monitoring and further evaluation. <Nacho Paiz - Last Filed: 12/03/17 18:35> - Medical Decision Making 12/03/17 21:26 Patient Name: RAVI HOYT THIS IS A PRELIMINARY REPORT FROM [facility] EXAM: CT Head wo IMAGES: 236 EXAM DATE AND TIME: 2017-12-03 20:14:15 HISTORY: 87 year-old woman with syncope and headaches. COMPARISON: Prior head CT conducted on: 04/13/2014. Prior study images not available on [facility] at this time. When these are submitted for comparison, an addendum will be generated. TECHNIQUE: Non-contrast axial images were obtained. Coronal and sagittal images were also generated. FINDINGS There are no intracranial hemorrhages, brain parenchymal contusion injuries, or imaged calvarial, facial or skull base fractures. There is no subcutaneous soft tissue swelling. There are no extra-axial fluid collections or evidence of an intra-axial mass lesion. The sulci and ventricles are moderately prominent, suggesting age related involutional changes. Multiple, scattered focal and patchy deep white matter chronic microvascular ischemic changes are noted in the frontal and parietal lobes, bilaterally. Cerebral rose/white matter differentiation is preserved; there is no clear evidence of an acute ischemic lesion at this time. Also noted, are multiple bubbles of gas within the cavernous sinuses, bilaterally, with some gas seen extending from the left sphenoid sinus to the left ophthalmic vein. Otherwise, orbital and petrous structures, the sella turcica, suprasellar cistern, paracavernous structures, cerebellopontine angles, and posterior fossa appear unremarkable. The paranasal and mastoid sinuses are clear. IMPRESSION: Multiple, scattered, deep cerebral white matter chronic microvascular ischemic changes. Moderate age related involutional changes. Also noted, are multiple bubbles of gas within the cavernous sinuses, bilaterally, with some gas seen extending from the left sphenoid sinus to the left ophthalmic vein. The study is otherwise unremarkable. No calvarial, facial or skull base fractures imaged on the current exam. No intracranial hemorrhages or brain parenchymal contusion injuries. THIS DOCUMENT HAS BEEN ELECTRONICALLY SIGNED 12/04/17 01:46 Pt admitted to telelmetry observation under the hospitalists. <Venecia Mederos - Last Filed: 12/04/17 01:46> *DC/Admit/Observation/Transfer <Nacho Paiz - Last Filed: 12/03/17 18:35> - Attestations Scribe Attestion: 12/03/17 18:44 Documentation prepared by Nicki Osei, acting as medical receptionist assistant for Nacho Paiz MD. <Nicki Osei - Last Filed: 12/03/17 18:41> - Discharge Dispostion Admit: Yes <Venecia Mederos - Last Filed: 12/04/17 01:46> Diagnosis at time of Disposition: Confusion, Frequent falls, Syncope, Poor appetite - Discharge Dispostion Condition at time of disposition: Guarded
[2017-12-03 20:57] LABS: BASO % 0.5 % (0-2.0); EOS % 0.9 % (0-4.5); HEMATOCRIT 37.6 % (32.4-45.2); HEMOGLOBIN 12.6 GM/dL (10.7-15.3); LYMPH % 9.3 % (8-40); MCH 30.8 pg (25.7-33.7); MCHC 33.6 g/dl (32.0-36.0); MEAN CELL VOLUME 91.7 fl (80-96); MEAN PLT VOLUME 7.5 fl (7.5-11.1); MONO % 5.6 % (3.8-10.2); NEUT % 83.7 % (42.8-82.8); PLATELET COUNT 246 K/MM3 (134-434); RDW 14.2 % (11.6-15.6); WHITE BLOOD COUNT 5.7 K/mm3 (4.0-10.0)
[2017-12-03 21:11] LABS: INR 0.99 (0.82-1.09); PROTHROMBIN TIME (PATIENT) 11.2 SEC (9.98-11.88)
[2017-12-03 21:14] LABS: ACTIVATED PTT 26.2 SECONDS (26.9-34.4)
[2017-12-03 21:20] LABS: ALBUMIN 3.2 g/dl (3.4-5.0); ANION GAP 7 (8-16); BILIRUBIN,TOTAL 0.2 mg/dL (0.2-1.0); BLOOD UREA NITROGEN 13 mg/dL (7-18); CALCIUM 7.5 mg/dL (8.5-10.1); CHLORIDE 110 mmol/L (98-107); CO2 27 mmol/L (21-32); CREATININE 0.7 mg/dL (0.55-1.02); GLUCOSE,RANDOM 122 mg/dL (74-106); MAGNESIUM 2.1 mg/dL (1.8-2.4); PHOSPHOROUS 3.5 mg/dL (2.5-4.9); POTASSIUM 4.2 mmol/L (3.5-5.1); SGOT/AST 17 U/L (15-37); SGPT/ALT 15 U/L (12-78); SODIUM 144 mmol/L (136-145); TOT PROT 5.6 g/dl (6.4-8.2)
[2017-12-03 21:24] LABS: ALK PHOS 98 U/L (45-117)
[2017-12-03 21:34] LABS: URINE APPEARANCE SLCLOUDY; URINE BILIRUBIN NEGATIVE (NEGATIVE); URINE BLOOD NEGATIVE (NEGATIVE); URINE COLOR YELLOW; URINE GLUCOSE (UA) NEGATIVE (NEGATIVE); URINE KETONE NEGATIVE (NEGATIVE); URINE LEUK ESTERASE NEGATIVE (NEGATIVE); URINE NITRITE NEGATIVE (NEGATIVE); URINE PROTEIN NEGATIVE (NEGATIVE); URINE UROBILINOGEN 4.0 E.U/dl mg/dL (0.2-1.0)
--- NOTE | 2017-12-03 22:19 | PN ---
Teaching Attending Note Name of Resident: Emely Garcia ATTENDING PHYSICIAN STATEMENT I saw and evaluated the patient. I reviewed the resident's note and discussed the case with the resident. I agree with the resident's findings and plan as documented. SUBJECTIVE: 86 F with pmhx. of HTN, HLD, DM, COPD, GERD, Emphysema and dementia who presented with loss of conscioussness. Her was able to catch her. She did not hit her head. As per ED chart. Also, pt. was noted to have jerky motion and loss of bowel/bladder function. There was no family at bedside and pt.is poor historian. She is [place]ien Speaking and translation provided by . Pt. Stated she is doesnt feel good, but refused to answer any other questions OBJECTIVE: Physical: VS: Vital Signs Period Temp Pulse Resp BP Sys/Robles Pulse Ox Last 24 Hr 97.9 F 58 18 107/62 98 PT. REFUSED PHYSICAL EXAM, Explained to her in [place] and Faroese necessity of having PE, still refused. CBCD WBC 5.7 K/mm3 (4.0-10.0) 12/03/17 20:42 RBC 4.10 M/mm3 (3.60-5.2) 12/03/17 20:42 Hgb 12.6 GM/dL (10.7-15.3) 12/03/17 20:42 Hct 37.6 % (32.4-45.2) 12/03/17 20:42 MCV 91.7 fl (80-96) 12/03/17 20:42 MCHC 33.6 g/dl (32.0-36.0) 12/03/17 20:42 RDW 14.2 % (11.6-15.6) 12/03/17 20:42 Plt Count 246 K/MM3 (134-434) 12/03/17 20:42 MPV 7.5 fl (7.5-11.1) 12/03/17 20:42 CMP Sodium 144 mmol/L (136-145) 12/03/17 20:42 Potassium 4.2 mmol/L (3.5-5.1) 12/03/17 20:42 Chloride 110 mmol/L (98-107) H 12/03/17 20:42 Carbon Dioxide 27 mmol/L (21-32) 12/03/17 20:42 Anion Gap 7 (8-16) L 12/03/17 20:42 BUN 13 mg/dL (7-18) 12/03/17 20:42 Creatinine 0.7 mg/dL (0.55-1.02) 12/03/17 20:42 Creat Clearance w eGFR > 60 (>60) 12/03/17 20:42 Random Glucose 122 mg/dL (74-106) H 12/03/17 20:42 Calcium 7.5 mg/dL (8.5-10.1) L 12/03/17 20:42 Total Bilirubin 0.2 mg/dL (0.2-1.0) D 12/03/17 20:42 AST 17 U/L (15-37) 12/03/17 20:42 ALT 15 U/L (12-78) 12/03/17 20:42 Alkaline Phosphatase 98 U/L (45-117) 12/03/17 20:42 Total Protein 5.6 g/dl (6.4-8.2) L 12/03/17 20:42 Albumin 3.2 g/dl (3.4-5.0) L 12/03/17 20:42 CARDIAC ENZYMES Creatine Kinase 47 IU/L (26-192) 12/03/17 20:42 Troponin I < 0.02 ng/ml (0.00-0.05) 12/03/17 20:42 Urine Test Results Urine Color Yellow 12/03/17 20:42 Urine Appearance Slcloudy 12/03/17 20:42 Urine pH 6.0 (5.0-8.0) 12/03/17 20:42 Ur Specific [place] 1.014 (1.001-1.035) 12/03/17 20:42 Urine Protein Negative (NEGATIVE) 12/03/17 20:42 Urine Glucose (UA) Negative (NEGATIVE) 12/03/17 20:42 Urine Ketones Negative (NEGATIVE) 12/03/17 20:42 Urine Blood Negative (NEGATIVE) 12/03/17 20:42 Urine Nitrite Negative (NEGATIVE) 12/03/17 20:42 Urine Bilirubin Negative (NEGATIVE) 12/03/17 20:42 Ur Leukocyte Esterase Negative (NEGATIVE) 12/03/17 20:42 EXAM DATE AND TIME: 2017-12-03 20:14:15 HISTORY: 87 year-old woman with syncope and headaches. COMPARISON: Prior head CT conducted on: 04/13/2014. Prior study images not available on [facility] at this time. When these are submitted for comparison, an addendum will be generated. TECHNIQUE: Non-contrast axial images were obtained. Coronal and sagittal images were also generated. FINDINGS There are no intracranial hemorrhages, brain parenchymal contusion injuries, or imaged calvarial, facial or skull base fractures. There is no subcutaneous soft tissue swelling. There are no extra-axial fluid collections or evidence of an intra-axial mass lesion. The sulci and ventricles are moderately prominent, suggesting age related involutional changes. Multiple, scattered focal and patchy deep white matter chronic microvascular ischemic changes are noted in the frontal and parietal lobes, bilaterally. Cerebral rose/white matter differentiation is preserved; there is no clear evidence of an acute ischemic lesion at this time. Also noted, are multiple bubbles of gas within the cavernous sinuses, bilaterally, with some gas seen extending from the left sphenoid sinus to the left ophthalmic vein. Otherwise, orbital and petrous structures, the sella turcica, suprasellar cistern, paracavernous structures, cerebellopontine angles, and posterior fossa appear unremarkable. The paranasal and mastoid sinuses are clear. IMPRESSION: Multiple, scattered, deep cerebral white matter chronic microvascular ischemic changes. Moderate age related involutional changes. Also noted, are multiple bubbles of gas within the cavernous sinuses, bilaterally, with some gas seen extending from the left sphenoid sinus to the left ophthalmic vein. The study is otherwise unremarkable. No calvarial, facial or skull base fractures imaged on the current exam. No intracranial hemorrhages or brain parenchymal contusion injuries. THIS DOCUMENT HAS BEEN ELECTRONICALLY SIGNED Home Medications Medication Instructions Recorded Aspirin [ASA -] 81 mg PO DAILY 10/21/15 Ranitidine [Zantac -] 150 mg PO DAILY 10/21/15 Simvastatin [Zocor -] 20 mg PO DAILY 10/21/15 Valsartan [Diovan] 160 mg PO DAILY 10/21/15 traZODone HCL [Desyrel -] 50 mg PO HS 10/21/15 Donepezil HCl [Aricept -] 10 mg PO DAILY 05/02/17 ASSESSMENT AND PLAN: 86 F with pmhx. of HTN, HLD, DM, COPD, GERD, Emphysema and dementia being admitted for loss of conscioussness 1.) Loss of Conscioussness/ ?SEIZURE - Neuro consult - Seizure percautions - Vasovagal/Cardiogenic/Neurogenic Syncope - Orthostatic VS - Gentle IVF due to poor PO intake - CT HEAD reviewed- Repeat CT with thin slices to eval Cavernous sinus - EKG/Trop- Trend - ECHO/Carotid US 2.) DM - FS - RAISS 3.) HTN - Hold PO meds due to mild hypotension 4.) Dementia - C/W Aricept 5.) Dvt Ppx - Scds Place in Obs-Tele
--- NOTE | 2017-12-03 22:31 | HP ---
CHIEF COMPLAINT: syncopal episode PCP: HISTORY OF PRESENT ILLNESS: 87 y/o F with PMH dementia, COPD, DM, HTN, HLD, GERD, who presents to the ED s/ p syncopal episode this afternoon. Pt poor historian. As per nurse, pt had syncopal episode while walking to the bathroom with her . When patient had walked half the distance, she started shaking, collapsed and had bowel incontinence. Her was able to catch her, and she did not experience head trauma. Nurse states that family saw her "eyelids fluttering," and that pt was confused after the episode. For this reason, family brought the patient to the ED. Over the last week, pt has had productive cough, decreased PO intake and increased somnolence. Denies TREVIZO, fever, chills, chest pain or pressure, or changes in urinary function. According to patient "everything is fine" and she has "no pain." It is unclear whether pt lives at home on her own. ER course was notable for: (1) 8.1 Corrected Ca (2) Head CT- without bleed, scattered patchy chronic microvascular ischemic changes in frontal and parietal regions. Gas in cavernous sinuses, L opthalmic vein (3) Recent Travel: none PAST MEDICAL HISTORY: as above PAST SURGICAL HISTORY: unable to obtain d/t patient's mental status Social History: unable to obtain d/t patient's mental status Smoking: Alcohol: Drugs: Family History: see above Allergies No Known Allergies Allergy (Verified 12/03/17 17:41) HOME MEDICATIONS: Home Medications Medication Instructions Recorded Aspirin [ASA -] 81 mg PO DAILY 10/21/15 Ranitidine [Zantac -] 150 mg PO DAILY 10/21/15 Simvastatin [Zocor -] 20 mg PO DAILY 10/21/15 Valsartan [Diovan] 160 mg PO DAILY 10/21/15 traZODone HCL [Desyrel -] 50 mg PO HS 10/21/15 Donepezil HCl [Aricept -] 10 mg PO DAILY 05/02/17 REVIEW OF SYSTEMS CONSTITUTIONAL: Absent: fever, chills, diaphoresis, generalized weakness, malaise, loss of appetite, weight change HEENT: Absent: rhinorrhea, nasal congestion, throat pain, throat swelling, difficulty swallowing, mouth swelling, ear pain, eye pain, visual changes CARDIOVASCULAR: Absent: chest pain, syncope, palpitations, irregular heart rate, lightheadedness , peripheral edema RESPIRATORY: +cough Absent: cough, shortness of breath, dyspnea with exertion, orthopnea, wheezing, stridor, hemoptysis GASTROINTESTINAL: Absent: abdominal pain, abdominal distension, nausea, vomiting, diarrhea, constipation, melena, hematochezia GENITOURINARY: Absent: dysuria, frequency, urgency, hesitancy, hematuria, flank pain, genital pain MUSCULOSKELETAL: Absent: myalgia, arthralgia, joint swelling, back pain, neck pain SKIN: Absent: rash, itching, pallor HEMATOLOGIC/IMMUNOLOGIC: Absent: easy bleeding, easy bruising, lymphadenopathy, frequent infections ENDOCRINE: Absent: unexplained weight gain, unexplained weight loss, heat intolerance, cold intolerance NEUROLOGIC: +bowel incontinence Absent: headache, focal weakness or paresthesias, dizziness, unsteady gait, seizure, mental status changes, bladder or bowel incontinence PSYCHIATRIC: +dementia Absent: anxiety, depression, suicidal or homicidal ideation, hallucinations. PHYSICAL EXAMINATION Vital Signs 12/03/17 17:43 Temperature 97.9 F Pulse Rate 58 L Respiratory 18 Rate Blood Pressure 107/62 O2 Sat by Pulse 98 Oximetry (%) Pt refused physical exam GENERAL: Resting in bed. AAO x 1 (to self only). In no acute distress HEAD: Normal with no signs of trauma. EYES: Pupils equal, round and reactive to light, extraocular movements intact, sclera anicteric, conjunctiva clear. No lid lag. EARS, NOSE, THROAT: Ears normal, nares patent, oropharynx clear without exudates. Moist mucous membranes. NECK: Normal range of motion, supple without lymphadenopathy, JVD, or masses. LUNGS: Breath sounds equal, clear to auscultation bilaterally. No wheezes, and no crackles. No accessory muscle use. HEART: Regular rate and rhythm, normal S1 and S2 without murmur, rub or gallop. ABDOMEN: Soft, nontender, not distended, normoactive bowel sounds, no guarding, no rebound, no masses. No hepatomegaly or splenomegaly. MUSCULOSKELETAL: Normal range of motion at all joints. No bony deformities or tenderness. No CVA tenderness. UPPER EXTREMITIES: 2+ pulses, warm, well-perfused. No cyanosis. No clubbing. No peripheral edema. LOWER EXTREMITIES: 2+ pulses, warm, well-perfused. No calf tenderness. No peripheral edema. NEUROLOGICAL: Cranial nerves II-XII intact. Normal speech. Normal gait. PSYCHIATRIC: Cooperative. Good eye contact. Appropriate mood and affect. SKIN: Warm, dry, normal turgor, no rashes or lesions noted, normal capillary refill. Laboratory Results 12/03/17 12/03/17 12/03/17 20:42 20:42 20:42 WBC 5.7 RBC 4.10 Hgb 12.6 Hct 37.6 MCV 91.7 MCH 30.8 MCHC 33.6 RDW 14.2 Plt Count 246 MPV 7.5 Neutrophils % 83.7 H Lymphocytes % 9.3 D Monocytes % 5.6 Eosinophils % 0.9 Basophils % 0.5 PT with INR 11.20 INR 0.99 PTT (Actin FS) 26.2 L Sodium Albumin Urine Color Yellow Urine Appearance Slcloudy Urine pH 6.0 Ur Specific [place] 1.014 Urine Protein Negative Urine Glucose (UA) Negative Urine Ketones Negative Urine Blood Negative Urine Nitrite Negative Urine Bilirubin Negative Urine Urobilinogen 4.0 e.u/dl H Ur Leukocyte Esterase Negative 12/03/17 20:42 WBC INR PTT (Actin FS) Sodium 144 Potassium 4.2 Chloride 110 H Carbon Dioxide 27 Anion Gap 7 L BUN 13 Creatinine 0.7 Creat Clearance w eGFR > 60 Random Glucose 122 H Calcium 7.5 L Phosphorus 3.5 Magnesium 2.1 Total Bilirubin 0.2 D AST 17 ALT 15 Alkaline Phosphatase 98 Creatine Kinase 47 Troponin I < 0.02 Total Protein 5.6 L Albumin 3.2 L Urine Color EKG: NSR, bradycardia - rate 58pm, Qtc 459ms CXR: without evidence of infiltrates, official report pending ASSESSMENT/PLAN: 87 y/o F with PMH dementia, COPD, DM, HTN, HLD, GERD, who presents to the ED s/ p syncopal episode this afternoon. Pt poor historian. As per nurse, pt had syncopal episode while walking to the bathroom with her . Pt admitted to obs-tele for evaluation of seizure/syncopal episode. #LOC - s/p seizure/syncopal episode -Pt with eyelid twitching, collapse, fecal incontinence- will need to r/o seizure -Will also r/o cardiac, vasovagal syncope -Neuro consult- Dr. Buchanan -Orthostatic VS -Telemetry monitoring -Seizure precautions - padding, implemented -F/u ECHO -F/u carotid US -F/u serial trops, EKG - initial EKG with bradycardia -F/u Head CT non con - repeat in AM. Holding aspirin 81mg for time being, to avoid poss of bleed #Dementia -Continue aricept 10mg PO qd #COPD -Without current complaints -Duonebs q4h PRN for SOB #Hypocalcemia -Repleted with Ca 500mg PO -Follow level #HTN-controlled -Holding home meds as pt currently with borderline hypotension -Holding valsartan 160mg PO qd #HLD -Continue simvastatin 20mg PO qd #DM -BGM -ISS ACHS #F/E/N IVF 83 cc/hr Monitor electrolytes NPO until speech and swallow consult - to avoid aspiration risk d/t dementia #PPX DVT: SCD's #Dispo Obs-tele Visit type - Emergency Visit Emergency Visit: Yes ED Registration Date: 12/03/17 Care time: The patient presented to the Emergency Department on the above date and was hospitalized for further evaluation of their emergent condition. - New Patient This patient is new to me today: Yes Date on this admission: 12/04/17 - Critical Care Critical Care patient: No Hospitalist Screening - Colonoscopy Questionnaire Colonoscopy Questionnaire: Colonoscopy Questionnaire - Patient: 50 - 75 years old and never had a screening colonoscopy: Unknown History of colon or rectal polyps, or CA: Unknown History of IBD, Crohn's disease or UC: Unknown History of abdominal radiation therapy as a child: Unknown - Relative: 1 with colon or rectal CA, or polyps at age 60 or younger: Unknown Colon or rectal CA diagnosed at age 45 or younger: Unknown Multiple relatives with colon or rectal CA: Unknown - Outcome: Screening Result: Negative Screen
[2017-12-03] MEDS ORDERED: SODIUM CHLORIDE 1,000 ML IV SCH (23:00)
[2017-12-03] MEDS ORDERED: ALBUTEROL SO4 2.5/IPRATROPIUM 0.5 INH SOL 3 ML VIAL.NEB. NEB PRN (23:25)
[2017-12-03] MEDS ORDERED: CALCIUM (OYSTER SHELL) 500 MG TABLET (FP) PO ONE (23:30)
[2017-12-04] MEDS ORDERED: LORazepam 2 MG/ML SDV VIAL ONE (05:27)
[2017-12-04] MEDS ORDERED: LORazepam 2 MG/ML SDV VIAL IVPUSH ONE (05:35)
[2017-12-04 06:07] LABS: BASO % 1.4 % (0-2.0); HEMATOCRIT 39.6 % (32.4-45.2); HEMOGLOBIN 13.4 GM/dL (10.7-15.3); LYMPH % 27.1 % (8-40); MCH 30.8 pg (25.7-33.7); MCHC 33.7 g/dl (32.0-36.0); MEAN CELL VOLUME 91.4 fl (80-96); MEAN PLT VOLUME 7.8 fl (7.5-11.1); MONO % 8.6 % (3.8-10.2); NEUT % 59.9 % (42.8-82.8); PLATELET COUNT 244 K/MM3 (134-434); RBC 4.33 M/mm3 (3.60-5.2); RDW 14.7 % (11.6-15.6)
[2017-12-04 06:32] LABS: ANION GAP 9 (8-16); BLOOD UREA NITROGEN 11 mg/dL (7-18); CALCIUM 8.2 mg/dL (8.5-10.1); CHLORIDE 109 mmol/L (98-107); CO2 26 mmol/L (21-32); CREATININE 0.6 mg/dL (0.55-1.02); GLUCOSE,RANDOM 92 mg/dL (74-106); MAGNESIUM 2.4 mg/dL (1.8-2.4); PHOSPHOROUS 3.7 mg/dL (2.5-4.9); SODIUM 144 mmol/L (136-145)
[2017-12-04] MEDS ORDERED: HEMOQUE TEST 1 EACH EACH ONE (06:50)
[2017-12-04] MEDS: INSULIN SLIDING SCALE (NOVOLOG) 1 VIAL SQ SCH ×4 (06:53→21:44)
[2017-12-04] MEDS ORDERED: DONEPEZIL HCL 10 MG TABLET (FP) PO SCH (10:00)
--- NOTE | 2017-12-04 11:00 | EKG ---
Test Reason : Blood Pressure : / mmHG Vent. Rate : 058 BPM Atrial Rate : 058 BPM P-R Int : 154 ms QRS Dur : 070 ms QT Int : 468 ms P-R-T Axes : 109 012 043 degrees QTc Int : 459 ms POOR DATA QUALITY, INTERPRETATION MAY BE ADVERSELY AFFECTED SINUS BRADYCARDIA NORMAL ECG WHEN COMPARED WITH ECG OF 21-OCT-2015 21:52, QRS DURATION HAS DECREASED Confirmed by GIANA MANJARREZ, ISAIAS ([id number]) on 12/04/2017 11:00:09 AM Referred By: Confirmed By:ISAIAS FARIA MD
--- NOTE | 2017-12-04 11:03 | EKG ---
Test Reason : Blood Pressure : / mmHG Vent. Rate : 060 BPM Atrial Rate : 060 BPM P-R Int : 156 ms QRS Dur : 086 ms QT Int : 454 ms P-R-T Axes : 062 047 053 degrees QTc Int : 454 ms NORMAL SINUS RHYTHM WITH SINUS ARRHYTHMIA LOW VOLTAGE QRS BORDERLINE ECG WHEN COMPARED WITH ECG OF 03-DEC-2017 18:04, NO SIGNIFICANT CHANGE WAS FOUND Confirmed by ISAIAS FARIA MD ([id number]) on 12/04/2017 11:02:23 AM Referred By: Confirmed By:ISAIAS FARIA MD
--- NOTE | 2017-12-04 12:45 | CONSULT ---
Admitting History and Physical - Primary Care Physician PCP: Butch Morris - Admission History of Present Illness: 87 y/o F with PMH dementia, COPD, DM, HTN, HLD, GERD, who presents to the ED s/ p syncopal episode this afternoon. Pt poor historian. As per nurse, pt had syncopal episode while walking to the bathroom with her . Pt admitted to [facility] for evaluation of seizure/syncopal episode. This is my first consultation with Ms. Donohue. History Source: Family Member Limitations to Obtaining History: Clinical Condition - Past Medical History Cardiovascular: Yes: HTN, Hyperlipdemia Musculoskeletal: Yes: Chronic low back pain, Osteoarthritis - Smoking History Smoking history: Never smoked Have you smoked in the past 12 months: No Aproximately how many cigarettes per day: 0 If you are a former smoker, when did you quit?: 30 years ago - Alcohol/Substance Use Hx Alcohol Use: No - Social History ADL: Independent History of Recent Travel: No History - Admission Reason For Visit: CONFUSION, SYNCOPE, DECREASE IN APPETITE - Diagnostics X-ray: Report Reviewed CT Scan: Report Reviewed - General Mental Status: Awake and Alert, Able to Follow Commands, Forgetful, Vague, Confused Attention: Intact Ability to Follow Directions: Good Head/Neck Control: WFL - Hearing Hearing: Functional Speech Evaluation - Communication Primary Language: ITALIAN Communication: Yes: Simple Responses - Speech Production Able to Make Needs Known: Yes: WNL Intelligibility: Yes: WNL - Speech Characteristics Voice Loudness: Normal, Mildly Soft/Quiet Voice Pitch: Yes: Normal Voice Phonatory-based Quality: Yes: Normal Speech Pattern: Normal Speech Clarity: < 100% Nasal Resonance: Normal Articulation: Yes: Precise - Language/Auditory Comprehension Follows: Yes: 1 Stage Simple Commands - Language/Verbal Expression Able to Communicate Wants and Needs: Yes: WNL Functional Communication Status: Yes: WNL - Swallow Evaluation/Bedside Assessment Current Nutritional Intake: NPO Dentition: Yes: Adequate Facial Symmetry at Rest: Symmetrical Facial Symmetry on Retraction: Symmetrical Against Resistance Opening: Normal Against Resistance Closing: Normal Pucker Lips: Normal Smile: Normal Lingual Movement: Normal, Symmetric Lingual Speed of Movement: Normal Lingual Movement Strgth Against Opposition: Normal Lingual Movement Characteristics: Normal Velopharyngeal Movement: Normal Laryngeal Elevation: WFL Laryngeal Movement: Able to Palpate Rate of Intake: WFL Bolus Size: WFL Labial Seal: WFL Chewing: WFL Oral Prep Time: WFL A-P Transit: WFL Timing of Swallow: WFL Coughing/Throat Clear: No Change in Voice: No Recommendations - Speech Evaluation, Impression/Plan Impression: Verbal, confused, disoriented. Has been intermittently confused ands forgetful at home but this is a significant change, per family. - Dysphagia Impressions/Plan Swallowing Skills: [facility] Dysphagia Impressions: No Impairment *Silent aspiration: cannot be R/O at bedside Dysphagia Treatment Plan: Chin Tuck/Down, Elevate HOB during feed Recommendations: Modified Barium Swallow (if cough, congestion, fever) - Recommendations Diet Consistency: Regular Medication Administration: Whole with water Liquids: Thin Liquids
[2017-12-04 14:04] VITALS: BMI 25.0
--- NOTE | 2017-12-04 14:37 | PN ---
Teaching Attending Note Name of Resident: Santos Kauffman ATTENDING PHYSICIAN STATEMENT I saw and evaluated the patient. I reviewed the resident's note and discussed the case with the resident. I agree with the resident's findings and plan as documented. SUBJECTIVE: Patient confused. Has no complaints. OBJECTIVE: Vital Signs Period Temp Pulse Resp BP Sys/Robles Pulse Ox Last 24 Hr 97.9 F-98.5 F 58-89 17-20 100-134/62-80 97-98 HEART: S1S2, RRR LUNGS: Clear ABDOMEN: Soft, non-tender, non-distended, normal BS EXTREMITIES: No edema Laboratory Results - last 24 hr 12/03/17 12/03/17 12/03/17 20:42 20:42 20:42 WBC 5.7 RBC 4.10 Hgb 12.6 Hct 37.6 MCV 91.7 MCH 30.8 MCHC 33.6 RDW 14.2 Plt Count 246 MPV 7.5 Neutrophils % 83.7 H Lymphocytes % 9.3 D Monocytes % 5.6 Eosinophils % 0.9 Basophils % 0.5 PT with INR 11.20 INR 0.99 PTT (Actin FS) 26.2 L Sodium Potassium Chloride Carbon Dioxide Anion Gap BUN Creatinine Creat Clearance w eGFR POC Glucometer Random Glucose Calcium Phosphorus Magnesium Total Bilirubin AST ALT Alkaline Phosphatase Creatine Kinase Troponin I Total Protein Albumin Urine Color Yellow Urine Appearance Slcloudy Urine pH 6.0 Ur Specific [place] 1.014 Urine Protein Negative Urine Glucose (UA) Negative Urine Ketones Negative Urine Blood Negative Urine Nitrite Negative Urine Bilirubin Negative Urine Urobilinogen 4.0 e.u/dl H Ur Leukocyte Esterase Negative 12/03/17 12/04/17 12/04/17 20:42 05:55 05:55 WBC 4.0 RBC 4.33 Hgb 13.4 Hct 39.6 MCV 91.4 MCH 30.8 MCHC 33.7 RDW 14.7 Plt Count 244 MPV 7.8 Neutrophils % 59.9 D Lymphocytes % 27.1 D Monocytes % 8.6 Eosinophils % 3.0 D Basophils % 1.4 PT with INR INR PTT (Actin FS) Sodium 144 144 Potassium 4.2 4.0 Chloride 110 H 109 H Carbon Dioxide 27 26 Anion Gap 7 L 9 BUN 13 11 Creatinine 0.7 0.6 Creat Clearance w eGFR > 60 POC Glucometer Random Glucose 122 H 92 Calcium 7.5 L 8.2 L Phosphorus 3.5 3.7 Magnesium 2.1 2.4 Total Bilirubin 0.2 D AST 17 ALT 15 Alkaline Phosphatase 98 Creatine Kinase 47 Troponin I < 0.02 Total Protein 5.6 L Albumin 3.2 L Urine Color Urine Appearance Urine pH Ur Specific [place] Urine Protein Urine Glucose (UA) Urine Ketones Urine Blood Urine Nitrite Urine Bilirubin Urine Urobilinogen Ur Leukocyte Esterase 12/04/17 12/04/17 12/04/17 05:55 06:52 11:38 WBC RBC Hgb Hct MCV MCH MCHC RDW Plt Count MPV Neutrophils % Lymphocytes % Monocytes % Eosinophils % Basophils % PT with INR INR PTT (Actin FS) Sodium Potassium Chloride Carbon Dioxide Anion Gap BUN Creatinine Creat Clearance w eGFR POC Glucometer [phone] 89.67624 Random Glucose Calcium Phosphorus Magnesium Total Bilirubin AST ALT Alkaline Phosphatase Creatine Kinase Troponin I < 0.02 Total Protein Albumin Urine Color Urine Appearance Urine pH Ur Specific [place] Urine Protein Urine Glucose (UA) Urine Ketones Urine Blood Urine Nitrite Urine Bilirubin Urine Urobilinogen Ur Leukocyte Esterase Current Medications Generic Name Dose Route Start Last Admin Trade Name Freq PRN Reason Stop Dose Admin Albuterol/Ipratropium 1 amp 12/03/17 23:25 Duoneb - NEB Q4H PRN SHORTNESS OF BREATH Donepezil HCl 10 mg 12/04/17 10:00 12/04/17 09:54 Aricept - PO 10 mg DAILY ANNAMARIA Administration Sodium Chloride 1,000 mls @ 83 mls/hr 12/03/17 23:00 12/04/17 06:13 Normal Saline - IV 83 mls/hr ASDIR ANNAMARIA Administration Insulin Aspart 1 vial 12/04/17 07:00 12/04/17 11:40 Novolog Vial Sliding Scale - SQ Not Given ACHS [facility] Protocol ASSESSMENT AND PLAN: This is an 87 year old woman with a history of dementia, COPD, type 2 DM, HTN, hyperlipidemia, GERD who presented to the ED after passing out. 1. Syncope - Cause not clear - possibly secondary to hypotension, Aricept - Check echo, carotids 2. Dementia - Continue Aricept for now 3. COPD - Stable - Continue DuoNeb as needed 4. HTN - Diovan held secondary to low BP 5. Hyperlipidemia - Continue Zocor 6. Type 2 DM - Continue Novolog sliding scale
--- NOTE | 2017-12-04 15:44 | PN ---
Physical Exam: SUBJECTIVE: Patient seen and examined Overnight patient was agitated and received 2 mg of ativan. Patient is confused , but has had no more syncopal episodes. Repeat Head CT was unremarkable. OBJECTIVE: Vital Signs Period Temp Pulse Resp BP Sys/Rboles Pulse Ox Last 24 Hr 97.9 F-98.5 F 58-89 17-20 100-134/62-80 97-98 GENERAL: The patient is a&ox1, in no acute distress. HEAD: Normal with no signs of trauma. EYES: Pupils equal, round and reactive to light, extraocular movements intact, sclera anicteric, conjunctiva clear. No lid lag. EARS, NOSE, THROAT: Ears normal, nares patent, oropharynx clear without exudates. Moist mucous membranes. NECK: Normal range of motion, supple without lymphadenopathy, JVD, or masses. LUNGS: Breath sounds equal, clear to auscultation bilaterally. No wheezes, and no crackles. No accessory muscle use. HEART: Regular rate and rhythm, normal S1 and S2 without murmur, rub or gallop. ABDOMEN: Soft, nontender, not distended, normoactive bowel sounds, no guarding, no rebound, no masses. No hepatomegaly or splenomegaly. MUSCULOSKELETAL: Normal range of motion at all joints. No bony deformities or tenderness. No CVA tenderness. UPPER EXTREMITIES: 2+ pulses, warm, well-perfused. No cyanosis. No clubbing. No peripheral edema. LOWER EXTREMITIES: 2+ pulses, warm, well-perfused. No calf tenderness. No peripheral edema. NEUROLOGICAL: Cranial nerves II-XII intact. Normal speech. Normal gait. PSYCHIATRIC: Cooperative. Good eye contact. Appropriate mood and affect. SKIN: Warm, dry, normal turgor, no rashes or lesions noted, normal capillary refill. Laboratory Results - last 24 hr 12/03/17 12/03/17 12/03/17 20:42 20:42 20:42 WBC 5.7 RBC 4.10 Hgb 12.6 Hct 37.6 MCV 91.7 MCH 30.8 MCHC 33.6 RDW 14.2 Plt Count 246 MPV 7.5 Neutrophils % 83.7 H Lymphocytes % 9.3 D Monocytes % 5.6 Eosinophils % 0.9 Basophils % 0.5 PT with INR 11.20 INR 0.99 PTT (Actin FS) 26.2 L Sodium Potassium Chloride Carbon Dioxide Anion Gap BUN Creatinine Creat Clearance w eGFR POC Glucometer Random Glucose Calcium Phosphorus Magnesium Total Bilirubin AST ALT Alkaline Phosphatase Creatine Kinase Troponin I Total Protein Albumin Urine Color Yellow Urine Appearance Slcloudy Urine pH 6.0 Ur Specific [place] 1.014 Urine Protein Negative Urine Glucose (UA) Negative Urine Ketones Negative Urine Blood Negative Urine Nitrite Negative Urine Bilirubin Negative Urine Urobilinogen 4.0 e.u/dl H Ur Leukocyte Esterase Negative 12/03/17 12/04/17 12/04/17 20:42 05:55 05:55 WBC 4.0 RBC 4.33 Hgb 13.4 Hct 39.6 MCV 91.4 MCH 30.8 MCHC 33.7 RDW 14.7 Plt Count 244 MPV 7.8 Neutrophils % 59.9 D Lymphocytes % 27.1 D Monocytes % 8.6 Eosinophils % 3.0 D Basophils % 1.4 PT with INR INR PTT (Actin FS) Sodium 144 144 Potassium 4.2 4.0 Chloride 110 H 109 H Carbon Dioxide 27 26 Anion Gap 7 L 9 BUN 13 11 Creatinine 0.7 0.6 Creat Clearance w eGFR > 60 POC Glucometer Random Glucose 122 H 92 Calcium 7.5 L 8.2 L Phosphorus 3.5 3.7 Magnesium 2.1 2.4 Total Bilirubin 0.2 D AST 17 ALT 15 Alkaline Phosphatase 98 Creatine Kinase 47 Troponin I < 0.02 Total Protein 5.6 L Albumin 3.2 L Urine Color Urine Appearance Urine pH Ur Specific [place] Urine Protein Urine Glucose (UA) Urine Ketones Urine Blood Urine Nitrite Urine Bilirubin Urine Urobilinogen Ur Leukocyte Esterase 12/04/17 12/04/17 12/04/17 05:55 06:52 11:38 WBC RBC Hgb Hct MCV MCH MCHC RDW Plt Count MPV Neutrophils % Lymphocytes % Monocytes % Eosinophils % Basophils % PT with INR INR PTT (Actin FS) Sodium Potassium Chloride Carbon Dioxide Anion Gap BUN Creatinine Creat Clearance w eGFR POC Glucometer 102.02938 89.91019 Random Glucose Calcium Phosphorus Magnesium Total Bilirubin AST ALT Alkaline Phosphatase Creatine Kinase Troponin I < 0.02 Total Protein Albumin Urine Color Urine Appearance Urine pH Ur Specific [place] Urine Protein Urine Glucose (UA) Urine Ketones Urine Blood Urine Nitrite Urine Bilirubin Urine Urobilinogen Ur Leukocyte Esterase Active Medications Generic Name Dose Route Start Last Admin Trade Name Freq PRN Reason Stop Dose Admin Albuterol/Ipratropium 1 amp 12/03/17 23:25 Duoneb - NEB Q4H PRN SHORTNESS OF BREATH Donepezil HCl 10 mg 12/04/17 10:00 12/04/17 09:54 Aricept - PO 10 mg DAILY ANNAMARIA Administration Sodium Chloride 1,000 mls @ 83 mls/hr 12/03/17 23:00 12/04/17 06:13 Normal Saline - IV 83 mls/hr ASDIR ANNAMARIA Administration Insulin Aspart 1 vial 12/04/17 07:00 12/04/17 11:40 Novolog Vial Sliding Scale - SQ Not Given ACHS ANNAMARIA Protocol ASSESSMENT/PLAN: 87 y/o F with PMH dementia, COPD, DM, HTN, HLD, GERD, who presents to the ED s/ p syncopal episode #Syncopal episode, cardiogenic vs neurogenic vs vasovagal -Neuro consult- Dr. Buchanan -Orthostatic VS unremarkable -Telemetry monitoring -Echo, carotid u/s reviewed #Dementia -Continue aricept 10mg PO qd #COPD -Without current complaints -Duonebs q4h PRN for SOB #HTN-controlled -Holding home meds as pt currently with borderline hypotension -Holding valsartan 160mg PO qd #HLD -Continue simvastatin 20mg PO qd #DM -BGM -ISS ACHS #F/E/N IVF 83 cc/hr Monitor electrolytes Diabetic sodium diet #PPX DVT: SCD's #Dispo Obs-tele Visit type - Emergency Visit Emergency Visit: Yes ED Registration Date: 12/03/17 Care time: The patient presented to the Emergency Department on the above date and was hospitalized for further evaluation of their emergent condition. - New Patient This patient is new to me today: Yes Date on this admission: 12/04/17 - Critical Care Critical Care patient: No
--- NOTE | 2017-12-04 20:10 | CONSULT ---
Consult - text type - Consultation Consultation Note: NEUROLOGY CONSULTATION is greatly appreciated: This 87 yo woman lives with her sister, daughter and extended family. She has three shifts of health aides 10/04. PMH sig for HTN, Chol, COPD, DM, GERD and Alzheimer's disease x many years. Most recently on Insulins, Atorvastatin, ranitidine, valsartan, donepezil (10 mg ) and Trazadone (50 mg). Followed by me x few years. Last seen 01/02/17 with increased confusion, behavioral difficulties and reversal of sleep/wake cycles improved on Quetiapine. She was angry, agitated and disoriented at the time and quetiapine was increased to 25 mg q AM and 75 mg HS. Family notes that cognition and behavior continued to deteriorate since that time and they don't know who changed her "sleeping pill." Yesterday AM, her grandson and health aide were helping her to the bathroom when she become weak and pale and slumped to the ground unresponsive. Brief facial twitching and incontinence of bowel were described. Patient regained consciousness "in a few minutes" and EMS noted hypotension. CT of head X2 (both reviewed) shows moderate, diffuse atrophy, ex vacuo hydrocephalus and periventricular microvascular changes. EKG X2 Sinus bradycardia (58, 61). MALINDA: Thin, frail. No evidence of external head trauma. Neck supple with full ROM. No bruits. Cor Reg (60's). NEURO: Confused, wandering. Follows rare commands in Bahamian. Babbling speech. + Glabella, snout, suck. CN II-XLL: normal Motor: No drift or tremor. Normal grasps. No sig cogwheeling. Normal reflexes. Coord: No obvious dystaxia Sensory: Romberg appears Neg Gait: slightly shortened strides but stable. IMP: Non-focal exam sig for moderately severe, B/L cerebral dysfunction most c/ w advanced AD. Admission event most likely syncope. SUGGEST: D/C Donepezil which is known to cause Bradycardia, syncope and increase risk of PPM placement. D/C Valsartan Check orthostatic BP's. D/C trazadone which can cause orthostatic hypotension and wasn't working according to her family. Try Quetiapine 25 mg q HS again. If it is tolerated, could add 12.5 mg in AM for agitation. Thank you very much, Gelacio Buchanan MD
[2017-12-04] MEDS: ATORVASTATIN CA 10 MG TABLET (FP) PO SCH (21:37)
[2017-12-04] MEDS: RANITIDINE HCL 150 MG TABLET (FP) PO SCH (21:37)
[2017-12-04] MEDS: QUEtiapine FUMARATE 25 MG TABLET (FP) PO SCH (21:38)
[2017-12-05] MEDS: INSULIN SLIDING SCALE (NOVOLOG) 1 VIAL SQ SCH (06:41)
[2017-12-05] MEDS: RANITIDINE HCL 150 MG TABLET (FP) PO SCH ×2 (09:16→21:45)
[2017-12-05] MEDS: ASPIRIN COATED 81 MG TABLET.EC PO SCH (09:16)
--- NOTE | 2017-12-05 10:23 | PN ---
Progress Note, [employer] - Note Progress Note: Selected Entries 12/04/17 19:19 Supper 50% Laboratory Tests 12/04/17 05:55 WBC 4.0 On reg diet/thin liquids.
[2017-12-05] MEDS ORDERED: QUEtiapine FUMARATE 25 MG TABLET (FP) PO ONE (13:30)
--- NOTE | 2017-12-05 15:20 | PN ---
Physical Exam: SUBJECTIVE: Patient seen and examined no acute events overnight. Patient confused, but at baseline per family. OBJECTIVE: Vital Signs Period Temp Pulse Resp BP Sys/Robles Pulse Ox Last 24 Hr 97.9 F-98.2 F 55-78 17-18 120-144/57-93 97-97 GENERAL: The patient is a&ox1, in no acute distress. HEAD: Normal with no signs of trauma. EYES: Pupils equal, round and reactive to light, extraocular movements intact, sclera anicteric, conjunctiva clear. No lid lag. EARS, NOSE, THROAT: Ears normal, nares patent, oropharynx clear without exudates. Moist mucous membranes. NECK: Normal range of motion, supple without lymphadenopathy, JVD, or masses. LUNGS: Breath sounds equal, clear to auscultation bilaterally. No wheezes, and no crackles. No accessory muscle use. HEART: Regular rate and rhythm, normal S1 and S2 without murmur, rub or gallop. ABDOMEN: Soft, nontender, not distended, normoactive bowel sounds, no guarding, no rebound, no masses. No hepatomegaly or splenomegaly. MUSCULOSKELETAL: Normal range of motion at all joints. No bony deformities or tenderness. No CVA tenderness. UPPER EXTREMITIES: 2+ pulses, warm, well-perfused. No cyanosis. No clubbing. No peripheral edema. LOWER EXTREMITIES: 2+ pulses, warm, well-perfused. No calf tenderness. No peripheral edema. NEUROLOGICAL: Cranial nerves II-XII intact. Normal speech. Normal gait. PSYCHIATRIC: Cooperative. Good eye contact. Appropriate mood and affect. SKIN: Warm, dry, normal turgor, no rashes or lesions noted, normal capillary refill. Laboratory Results - last 24 hr 12/04/17 21:43 POC Glucometer 84 Active Medications Generic Name Dose Route Start Last Admin Trade Name Freq PRN Reason Stop Dose Admin Albuterol/Ipratropium 1 amp 12/03/17 23:25 Duoneb - NEB Q4H PRN SHORTNESS OF BREATH Aspirin 81 mg 12/05/17 10:00 12/05/17 09:16 Ecotrin - PO 81 mg DAILY ANNAMARIA Administration Atorvastatin Calcium 10 mg 12/04/17 22:00 12/04/17 21:37 Lipitor - PO 10 mg HS ANNAMARIA Administration Quetiapine Fumarate 25 mg 12/04/17 22:00 12/04/17 21:38 Seroquel - PO 25 mg HS ANNAMARIA Administration Ranitidine HCl 150 mg 12/04/17 22:00 12/05/17 09:16 Zantac - PO 150 mg BID ANNAMARIA Administration ASSESSMENT/PLAN: 87 y/o F with PMH dementia, COPD, DM, HTN, HLD, GERD, who presents to the ED s/ p syncopal episode #Syncopal episode, cardiogenic vs neurogenic vs vasovagal -Neuro consult appreciated- Dr. Buchanan -Orthostatic VS unremarkable -Telemetry monitoring -Echo, carotid u/s reviewed -No more events, can d/c telemetry #Dementia -d/c aricept given hypotension -Seroquel 25 mg po hs for agitation -Avoid trazadone as has not worked in the past #COPD -Without current complaints -Duonebs q4h PRN for SOB #HTN-controlled -Holding home meds as pt currently with borderline hypotension -Holding valsartan 160mg PO qd #HLD -Continue simvastatin 20mg PO qd #DM -BGM -ISS ACHS #F/E/N No IVF Monitor electrolytes Diabetic sodium diet #PPX DVT: SCD's #Dispo Pending SN[facility] placement [facility] Visit type - Emergency Visit Emergency Visit: Yes ED Registration Date: 12/03/17 Care time: The patient presented to the Emergency Department on the above date and was hospitalized for further evaluation of their emergent condition. - New Patient This patient is new to me today: No - Critical Care Critical Care patient: No
--- NOTE | 2017-12-05 18:34 | PN ---
Teaching Attending Note Name of Resident: Santos Kauffman ATTENDING PHYSICIAN STATEMENT I saw and evaluated the patient. I reviewed the resident's note and discussed the case with the resident. I agree with the resident's findings and plan as documented. SUBJECTIVE: No complaints. OBJECTIVE: Vital Signs Period Temp Pulse Resp BP Sys/Robles Pulse Ox Last 24 Hr 98 F-98 F 55-78 18-18 120-139/57-93 97-97 HEART: S1S2, RRR LUNGS: Clear ABDOMEN: Soft, non-tender, non-distended, normal BS EXTREMITIES: No edema Laboratory Results - last 24 hr 12/04/17 21:43 POC Glucometer 84 Current Medications Generic Name Dose Route Start Last Admin Trade Name Freq PRN Reason Stop Dose Admin Albuterol/Ipratropium 1 amp 12/03/17 23:25 Duoneb - NEB Q4H PRN SHORTNESS OF BREATH Aspirin 81 mg 12/05/17 10:00 12/05/17 09:16 Ecotrin - PO 81 mg DAILY ANNAMARIA Administration Atorvastatin Calcium 10 mg 12/04/17 22:00 12/04/17 21:37 Lipitor - PO 10 mg HS ANNAMARIA Administration Quetiapine Fumarate 25 mg 12/04/17 22:00 12/04/17 21:38 Seroquel - PO 25 mg HS ANNAMARIA Administration Ranitidine HCl 150 mg 12/04/17 22:00 12/05/17 09:16 Zantac - PO 150 mg BID ANNAMARIA Administration ASSESSMENT AND PLAN: This is an 87 year old woman with a history of dementia, COPD, type 2 DM, HTN, hyperlipidemia, GERD who presented to the ED after passing out. 1. Syncope - Cause not clear - possibly secondary to hypotension, Aricept - Carotid dopplers show no hemodynamically significant stenosis - Echo shows diastolic dysfunction, pulm HTN - Aricept discontinued - Check orthostatics - Physical therapy 2. Dementia - Aricept, Trazodone discontinued and Seroquel started 3. COPD - Stable - Continue DuoNeb as needed 4. HTN - Diovan held secondary to low BP 5. Hyperlipidemia - Continue Lipitor 6. Type 2 DM - Continue Novolog sliding scale
[2017-12-05] MEDS: ATORVASTATIN CA 10 MG TABLET (FP) PO SCH (21:45)
[2017-12-05] MEDS: QUEtiapine FUMARATE 25 MG TABLET (FP) PO SCH (21:45)
[2017-12-06] MEDS: ASPIRIN COATED 81 MG TABLET.EC PO SCH (10:03)
[2017-12-06] MEDS: RANITIDINE HCL 150 MG TABLET (FP) PO SCH ×2 (10:03→21:00)
--- NOTE | 2017-12-06 13:25 | PN ---
Physical Exam: SUBJECTIVE: Patient seen and examined No acute events overnight. Patient has no complaints this morning. Feels well and denies dizziness when walking to bathroom. OBJECTIVE: Vital Signs Period Temp Pulse Resp BP Sys/Robles Pulse Ox Last 24 Hr 98.2 F-98.8 F 70-74 18-18 109-120/52-74 96-96 GENERAL: The patient is a&ox1, in no acute distress. HEAD: Normal with no signs of trauma. EYES: Pupils equal, round and reactive to light, extraocular movements intact, sclera anicteric, conjunctiva clear. No lid lag. EARS, NOSE, THROAT: Oropharynx clear without exudates. Moist mucous membranes. NECK: Normal range of motion, supple without lymphadenopathy, JVD, or masses. LUNGS: Breath sounds equal, clear to auscultation bilaterally. No wheezes, and no crackles. No accessory muscle use. HEART: Regular rate and rhythm, normal S1 and S2 without murmur, rub or gallop. ABDOMEN: Soft, nontender, not distended, normoactive bowel sounds, no guarding, no rebound, no masses. No hepatomegaly or splenomegaly. MUSCULOSKELETAL: Normal range of motion at all joints. UPPER EXTREMITIES: 2+ pulses, warm, well-perfused. No cyanosis. No clubbing. No peripheral edema. LOWER EXTREMITIES: 2+ pulses, warm, well-perfused. No calf tenderness. No peripheral edema. PSYCHIATRIC: Cooperative. Good eye contact. Appropriate mood and affect. SKIN: Warm, dry, normal turgor, no rashes or lesions noted, normal capillary refill. Active Medications Generic Name Dose Route Start Last Admin Trade Name Toyq PRN Reason Stop Dose Admin Albuterol/Ipratropium 1 amp 12/03/17 23:25 Duoneb - NEB Q4H PRN SHORTNESS OF BREATH Aspirin 81 mg 12/05/17 10:00 12/06/17 10:03 Ecotrin - PO 81 mg DAILY ANNAMARIA Administration Atorvastatin Calcium 10 mg 12/04/17 22:00 12/05/17 21:45 Lipitor - PO 10 mg HS ANNAMARIA Administration Quetiapine Fumarate 25 mg 12/04/17 22:00 12/05/17 21:45 Seroquel - PO 25 mg HS ANNAMARIA Administration Ranitidine HCl 150 mg 12/04/17 22:00 03/21/18 10:03 Zantac - PO 150 mg BID ANNAMARIA Administration ASSESSMENT/PLAN: 87 y/o F with PMH dementia, COPD, HTN, HLD, GERD, who presents to the ED s/p syncopal episode. #Syncopal episode, likely 2/2 to hypotension -Neuro consult appreciated- Dr. Buchanan -Orthostatic VS unremarkable -EKG- sinus bradycardia @ 58 bpm and 61 bpm -Head CT- moderate, diffuse atrophy, ex vacuo hydrocephalus and periventricular microvascular changes. -Echo- LV normal, EF 65-70%, No wall abnormalities, Impaired relaxation with E/E ' of 16 and TDI revealing elevated filling pressure. Normal LA, Normal RA, RV normal, Mild mitral valve calcifcation, Mild MR, Mild , PASP-39 mmHG, No effusion, No change from 02/06/2015. -Carotid U/s- Mild atherosclreosis L>R, No hemodynamically significant stenosis -Trops x-2 -UA unremarkable -Urine culture growing Lactose fermenting Neg bacilli, however patient is asymptomatic -No more events, can d/c telemetry #Dementia -d/c aricept 10 mg, trazadone 50 mg, Valsartan 160 mg daily for hypotension -Started on Seroquel 25 mg po hs for agitation. Can increase 12.5 mg in AM for agitation #COPD -Without current complaints -Duonebs q4h PRN for SOB #HTN-controlled -Holding home meds as pt currently with borderline hypotension -Holding valsartan 160mg PO qd #HLD -Continue lipitor 10 mg po hs #GERD -Continue zantac 150 mg po bid #F/E/N No IVF Monitor electrolytes Sodium diet #PPX DVT: SCD's #Dispo Pending SNF placement to [facility] Visit type - Emergency Visit Emergency Visit: Yes ED Registration Date: 12/03/17 Care time: The patient presented to the Emergency Department on the above date and was hospitalized for further evaluation of their emergent condition. - New Patient This patient is new to me today: No - Critical Care Critical Care patient: No
--- NOTE | 2017-12-06 19:25 | PN ---
Teaching Attending Note Name of Resident: Santos Kauffman ATTENDING PHYSICIAN STATEMENT I saw and evaluated the patient. I reviewed the resident's note and discussed the case with the resident. I agree with the resident's findings and plan as documented. No pain , no light headedness OBJECTIVE: NAD Cv: RRR Lungs: CTAb ext : no edema ASSESSMENT AND PLAN: 87 year old woman with a history of dementia, COPD, type 2 DM, HTN, hyperlipidemia, GERD who presented with syncope 1- syncope : possible ortho hypotension - off aricept no further episodes 2- HTN: NL BP off diovan 3- DM : SSI 4- dementia : seroquel , off aricept pending rehab dc
[2017-12-06] MEDS: QUEtiapine FUMARATE 25 MG TABLET (FP) PO SCH (21:00)
[2017-12-06] MEDS: ATORVASTATIN CA 10 MG TABLET (FP) PO SCH (21:00)
[2017-12-07] MEDS: ASPIRIN COATED 81 MG TABLET.EC PO SCH (09:08)
[2017-12-07] MEDS: RANITIDINE HCL 150 MG TABLET (FP) PO SCH (09:08)
[2017-12-07 10:56] VITALS: BP 116/60; PULSE 68; TEMP 98.3
[2017-12-07] MEDS: VALSARTAN 40 MG TABLET (FP) PO SCH ×2 (14:00→14:01)
--- NOTE | 2017-12-07 14:19 | DS ---
Physical Exam: Microbiology 12/03/17 20:42 Urine - Urine Clean Catch Urine Culture - Final Escherichia Coli 12/03/17 20:42 Blood - Peripheral Venous Blood Culture - Preliminary NO GROWTH OBTAINED AFTER 96 HOURS, INCUBATION TO CONTINUE FOR 1 DAYS. 12/03/17 20:42 Blood - Peripheral Venous Blood Culture - Preliminary NO GROWTH OBTAINED AFTER 96 HOURS, INCUBATION TO CONTINUE FOR 1 DAYS. Selected Entries 12/06/17 12/07/17 20:56 10:30 Temperature 98.3 F Pulse Rate 68 Blood Pressure 116/60 O2 Sat by Pulse 98 Oximetry (%) Oxygen Delivery Room Air Method Laboratory Tests 12/03/17 12/03/17 12/04/17 20:42 20:42 05:55 WBC 4.0 Hgb 13.4 Hct 39.6 Plt Count 244 INR 0.99 PTT (Actin FS) 26.2 L Sodium Potassium Chloride Carbon Dioxide BUN Creatinine Troponin I < 0.02 12/04/17 12/04/17 05:55 05:55 WBC Hgb Hct Plt Count INR PTT (Actin FS) Sodium 144 Potassium 4.0 Chloride 109 H Carbon Dioxide 26 BUN 11 Creatinine 0.6 Troponin I < 0.02 Imaging: -EKG- sinus bradycardia @ 58 bpm and 61 bpm -Head CT- moderate, diffuse atrophy, ex vacuo hydrocephalus and periventricular microvascular changes. -Echo- LV normal, EF 65-70%, No wall abnormalities, Impaired relaxation with E/E ' of 16 and TDI revealing elevated filling pressure. Normal LA, Normal RA, RV normal, Mild mitral valve calcifcation, Mild MR, Mild , PASP-39 mmHG, No effusion, No change from 02/06/2015. -Carotid U/s- Mild atherosclreosis L>R, No hemodynamically significant stenosis HOSPITAL COURSE: Date of Admission:12/03/17 Date of Discharge: 12/07/17 87 y/o F with PMH dementia, COPD, HTN, HLD, GERD, who presented s/p syncopal episode. Patient was worked up. Cardiac and neurogenic causes were ruled out. Echo, head ct, carotid u/s were performed (results above). Patient believed to have had a syncopal episode 2/2 to hypotension. Patient's medications were adjusted. Her Aricept and trazadone were d/c. Her diovan was decreased to 40 mg from 160 mg daily. She was also started on Seroquel 25 mg at night for agitation and sleep. Patient will follow up with her PCP and Neurology. Patient sent to SNF at [facility]. Minutes to complete discharge: 45 Discharge Summary Reason For Visit: CONFUSION, SYNCOPE, DECREASE IN APPETITE Current Active Problems Syncope (Acute) COPD (chronic obstructive pulmonary disease) (Chronic) Dementia (Chronic) GERD (gastroesophageal reflux disease) (Chronic) HLD (hyperlipidemia) (Chronic) HTN (hypertension) (Chronic) Condition: Stable - Instructions Diet, Activity, Other Instructions: Ms. Donohue, you have been worked up for syncope, which was most likely related to a drop in blood pressure. Continue your home medications except the following: Please stop taking Aripcet and Trazadone We have decreased your Diovan dose from 160 mg to 40 mg. Take 40 mg of Diovan daily. Start taking Seroquel 25 mg at night. Please follow up with your primary care doctor and your neurologist, Dr. Buchanan , within 1 week *If you have chest pain, shortness of breath, or any new/worsening symptoms please come back to the hospital immediately. Referrals: Gelacio Buchanan MD [Staff Physician] - Chivo Kendrick [Primary Care Provider] - Disposition: [facility] - Home Medications Comprehensive Discharge Medication List: Ambulatory Orders Aspirin [Aspirin EC] 81 mg PO DAILY 12/04/17 Ranitidine [Zantac -] 150 mg PO BID 12/04/17 Simvastatin [Zocor -] 20 mg PO HS 12/04/17 Quetiapine Fumarate [Seroquel -] 25 mg PO HS #30 tablet 12/07/17 Valsartan [Diovan] 40 mg PO DAILY #30 tablet 12/07/17 This patient is new to me today: No Emergency Visit: Yes ED Registration Date: 12/03/17 Care time: The patient presented to the Emergency Department on the above date and was hospitalized for further evaluation of their emergent condition. Critical Care patient: No - Discharge Referral Referred to [facility] Med [facility].: No
--- NOTE | 2017-12-07 16:16 | PN ---
Teaching Attending Note Name of Resident: Santos Kauffman ATTENDING PHYSICIAN STATEMENT I saw and evaluated the patient. I reviewed the resident's note and discussed the case with the resident. I agree with the resident's findings and plan as documented. SUBJECTIVE: No fever or chills. has no abd pain, poor historian today and refuses to answer further questions OBJECTIVE: NAD , not oriented to time ad age . knows she is in hospital . Not cooperative Cv: RRR Lungs: CTAB Ext: no edema ASSESSMENT AND PLAN: 87 year old woman with a history of dementia, COPD, type 2 DM, HTN, hyperlipidemia, GERD who presented with syncope 1- syncope : possible ortho hypotension - off aricept no further episodes 2- HTN: BP started to increase. resumed very low dose of diovan 40 mg ( original 160 ) 3- h/o DM : last A1c 6.3. Sugars have been NL. no need for meds 4- dementia : seroquel , off aricept dc to rehab.
== END 2017-12-07 17:40 | DRG 315 ==
LOC: JER 17:35 → JERBED 21:55 → OBSVTOIN 22:55 → J4W 12-04 15:21
PROVIDERS: ADMIT Internal Medicine; ATTEND Internal Medicine
DX: I95.9 Hypotension, unspecified (principal); G91.9 Hydrocephalus, unspecified; N39.0 Urinary tract infection, site not specified; R00.1 Bradycardia, unspecified; R55 Syncope and collapse; R29.6 Repeated falls; J44.9 Chronic obstructive pulmonary disease, unspecified; E11.9 Type 2 diabetes mellitus without complications; I10 Essential (primary) hypertension; E78.5 Hyperlipidemia, unspecified; K21.9 Gastro-esophageal reflux disease without esophagitis; E83.51 Hypocalcemia; G30.9 Alzheimer's disease, unspecified; F02.80 Dementia in other diseases classified elsewhere, unspecified severity, without behavioral disturbance, psychotic disturbance, mood disturbance, and anxiety; G89.29 Other chronic pain; M54.5 Low back pain; M19.90 Unspecified osteoarthritis, unspecified site; B96.29 Other Escherichia coli [E. coli] as the cause of diseases classified elsewhere
CPT/HCPCS: 36415; 70450-TC; 71045-TC-FY; 80048; 80053; 81003; 82550; 82962; 83735; 84100; 84484; 85025; 85610; 85730; 87040; 87086; 87186; 93005; 93010; 93306-TC; 93880-TC; 97116-GP; 97161-GP; 99285-25; G0378; J7030

== ENCOUNTER 2018-02-21 04:38 | Observation (INO) | payer OTHER ==
[2018-02-21 05:00] VITALS: BMI 27.4
[2018-02-21] MEDS ORDERED: morphine CARPU-JECT 4 MG/1 ML DISP.SYRIN IVPUSH ONE (05:00)
[2018-02-21] MEDS ORDERED: morphine SULFATE 4 MG/ML VIAL ONE (05:11)
[2018-02-21 05:26] LABS: BASO % 0.3 % (0-2.0); EOS % 0.7 % (0-4.5); HEMATOCRIT 38.1 % (32.4-45.2); HEMOGLOBIN 12.7 GM/dL (10.7-15.3); LYMPH % 7.2 % (8-40); MCH 30.4 pg (25.7-33.7); MCHC 33.3 g/dl (32.0-36.0); MEAN CELL VOLUME 91.4 fl (80-96); MEAN PLT VOLUME 7.2 fl (7.5-11.1); NEUT % 86.8 % (42.8-82.8); PLATELET COUNT 285 K/MM3 (134-434); RBC 4.17 M/mm3 (3.60-5.2); RDW 14.4 % (11.6-15.6); WHITE BLOOD COUNT 9.2 K/mm3 (4.0-10.0)
[2018-02-21 05:40] LABS: PROTHROMBIN TIME (PATIENT) 11.3 SEC (9.7-13.0)
[2018-02-21 05:42] LABS: ACTIVATED PTT 22.1 SECONDS (26.9-34.4)
[2018-02-21 05:55] LABS: ALBUMIN 3.7 g/dl (3.4-5.0); ANION GAP 6 (8-16); BILIRUBIN,TOTAL 0.6 mg/dL (0.2-1.0); BLOOD UREA NITROGEN 21 mg/dL (7-18); CALCIUM 8.3 mg/dL (8.5-10.1); CHLORIDE 106 mmol/L (98-107); CO2 29 mmol/L (21-32); CREATININE 0.7 mg/dL (0.55-1.02); GLUCOSE,RANDOM 148 mg/dL (74-106); POTASSIUM 3.7 mmol/L (3.5-5.1); SGOT/AST 23 U/L (15-37); SGPT/ALT 22 U/L (12-78); SODIUM 141 mmol/L (136-145); TOT PROT 6.6 g/dl (6.4-8.2)
[2018-02-21 05:56] LABS: ALK PHOS 77 U/L (45-117)
--- NOTE | 2018-02-21 05:57 | PDOC ---
History of Present Illness - History of Present Illness Initial Comments: 02/21/18 05:54 "The patient is a 87 year old female, with a significant past medical history of dementia, COPD, DM, HTN, HLD and GERD, who presents to the emergency department via EMS from [facility] s/p unwitnessed fall with pain to the right arm and shoulder. As per patient, she was lying and bed, and the next thing she realizes she is waking up on the floor. She reports the pain is worse with any movement of her right hand. She endorses a mild headache but does not believe she hit her head. She denies recent fevers, chills, or dizziness. She denies recent nausea, vomit , diarrhea or constipation. She denies recent dysuria, frequency, urgency or hematuria. She denies recent chest pain or shortness of breath or palpitations. Allergies: NKA Past surgical history: None reported. Social history: Nonsmoker. Denies EtOH use and recreational drug use. Primary Care Physician: Dr. Chivo Kendrick Neurologist: Dr. Buchanan " <Rupert Islas - Last Filed: 02/21/18 07:49> <Rafael Subramanian - Last Filed: 02/21/18 10:20> - General Chief Complaint: Injury Stated Complaint: R ARM PAIN S/P FALL Time Seen by Provider: 02/21/18 04:47 Past History - Past Medical History COPD: Yes Dementia: Yes Diabetes: Yes GI Disorders: Yes (GERD) HTN: Yes Hypercholesterolemia: Yes - Surgical History Abdominal Surgery: Yes (FIBROID REMOVED) Appendectomy: Yes - Immunization History Immunization Up to Date: No - Suicide/Smoking/Psychosocial Hx Smoking Status: No Smoking History: Never smoked Have you smoked in the past 12 months: No Number of Cigarettes Smoked Daily: 0 If you are a former smoker, when did you quit?: 30 years ago Information on smoking cessation initiated: No Hx Alcohol Use: No Drug/Substance Use Hx: No Substance Use Type: None Hx Substance Use Treatment: No <Rupert Islas - Last Filed: 02/21/18 07:49> <Rafael Subramanian - Last Filed: 02/21/18 10:20> - Past Medical History Allergies/Adverse Reactions: Allergies Allergy/AdvReac Type Severity Reaction Status Date / Time No Known Allergies Allergy Verified 02/21/18 04:49 Home Medications: Ambulatory Orders Aspirin [Aspirin EC] 81 mg PO DAILY 12/04/17 Ranitidine [Zantac -] 150 mg PO BID 12/04/17 Simvastatin [Zocor -] 20 mg PO HS 12/04/17 Quetiapine Fumarate [Seroquel -] 25 mg PO HS #30 tablet 12/07/17 Valsartan [Diovan] 40 mg PO DAILY #30 tablet 12/07/17 Review of Systems - Review of Systems Comments:: 02/21/18 05:55 "GENERAL/CONSTITUTIONAL: No fever or chills. No weakness. HEAD, EYES, EARS, NOSE AND THROAT: No change in vision. No ear pain or discharge. No sore throat. CARDIOVASCULAR: No chest pain or shortness of breath. RESPIRATORY: No cough, wheezing, or hemoptysis. GASTROINTESTINAL: No nausea, vomiting, diarrhea or constipation. GENITOURINARY: No dysuria, frequency, or change in urination. +MUSCULOSKELETAL: Right arm and shoulder pain. No joint or muscle swelling. No neck or back pain. SKIN: No rash NEUROLOGIC: No headache, vertigo, loss of consciousness, or change in strength/ sensation. ENDOCRINE: No increased thirst. No abnormal weight change. HEMATOLOGIC/LYMPHATIC: No anemia, easy bleeding, or history of blood clots. ALLERGIC/IMMUNOLOGIC: No hives or skin allergy. " <Rupert Islas - Last Filed: 02/21/18 07:49> *Physical Exam - Vital Signs Last Vital Signs Temp Pulse Resp BP Pulse Ox 97.2 F L 80 18 131/89 96 02/21/18 04:49 02/21/18 04:49 02/21/18 04:49 02/21/18 04:49 02/21/18 04:49 - Physical Exam Comments: 02/21/18 05:55 "GENERAL: Awake, alert, and fully oriented, in no acute distress. HEAD: No signs of trauma EYES: PERRLA, EOMI, sclera anicteric, conjunctiva clear ENT: Auricles normal inspection, hearing grossly normal, nares patent, oropharynx clear without exudates. Moist mucosa NECK: Nontender, no stepoffs, Normal ROM, supple, no lymphadenopathy, JVD, or masses LUNGS: Breath sounds equal, clear to auscultation bilaterally. No wheezes, and no crackles HEART: Regular rate and rhythm, normal S1 and S2, no murmurs, rubs or gallops ABDOMEN: Soft, nontender, normoactive bowel sounds. No guarding, no rebound. No masses EXTREMITIES: + R shoulder with flattening of deltoid, tender to palpation over head of humerus, distal pulses and sensation intact, no numbness over deltoid NEUROLOGICAL: Cranial nerves II through XII intact. 5/5 strength and sensation in all extremities, Normal speech, normal gait, normal cerebellar function SKIN: Warm, Dry, normal turgor, no rashes or lesions noted. " <Rupert Islas - Last Filed: 02/21/18 07:49> - Vital Signs Last Vital Signs Temp Pulse Resp BP Pulse Ox 97.2 F L 65 18 123/62 97 02/21/18 04:49 02/21/18 07:11 02/21/18 07:11 02/21/18 07:11 02/21/18 07:11 <Rafael Subramanian - Last Filed: 02/21/18 10:20> ED Treatment Course - LABORATORY CBC & Chemistry Diagram: 02/21/18 05:16 02/21/18 05:16 - ADDITIONAL ORDERS Additional order review: 02/21/18 05:16 RBC 4.17 MCV 91.4 MCHC 33.3 RDW 14.4 MPV 7.2 L Neutrophils % 86.8 H D Lymphocytes % 7.2 L D Monocytes % 5.0 Eosinophils % 0.7 Basophils % 0.3 - RADIOLOGY Radiology Studies Ordered: Category Date Time Status HEAD CT WITHOUT CONTRAST [CT] Stat CT Scan 02/21/18 04:59 Taken CHEST PA & LAT [RAD] Stat Radiology 02/21/18 04:59 Ordered HUMERUS-RIGHT [RAD] Stat Radiology 02/21/18 05:00 Ordered PELVIS [RAD] Stat Radiology 02/21/18 05:00 Ordered SHOULDER-RIGHT [RAD] Stat Radiology 02/21/18 05:00 Ordered - Medications Given in the ED: ED Medications Discontinued Medications Generic Name Dose Route Start Last Admin Trade Name Freq PRN Reason Stop Dose Admin Morphine Sulfate 2 mg 02/21/18 05:00 02/21/18 05:23 Morphine Injection - IVPUSH 02/21/18 05:01 2 mg ONCE ONE Administration <OuRupert - Last Filed: 02/21/18 07:49> - LABORATORY CBC & Chemistry Diagram: 02/21/18 05:16 02/21/18 05:16 - ADDITIONAL ORDERS Additional order review: Laboratory Results 02/21/18 02/21/18 02/21/18 05:16 05:16 05:16 PT with INR 11.30 INR 1.00 PTT (Actin FS) 22.1 L Sodium 141 Potassium 3.7 Chloride 106 Carbon Dioxide 29 Anion Gap 6 L BUN 21 H Creatinine 0.7 Creat Clearance w eGFR > 60 Random Glucose 148 H Calcium 8.3 L Total Bilirubin 0.6 D AST 23 ALT 22 Alkaline Phosphatase 77 Creatine Kinase 70 Troponin I < 0.02 Total Protein 6.6 Albumin 3.7 02/21/18 05:16 RBC 4.17 MCV 91.4 MCHC 33.3 RDW 14.4 MPV 7.2 L Neutrophils % 86.8 H D Lymphocytes % 7.2 L D Monocytes % 5.0 Eosinophils % 0.7 Basophils % 0.3 - Medications Given in the ED: ED Medications Discontinued Medications Generic Name Dose Route Start Last Admin Trade Name Freq PRN Reason Stop Dose Admin Morphine Sulfate 2 mg 02/21/18 05:00 02/21/18 05:23 Morphine Injection - IVPUSH 02/21/18 05:01 2 mg ONCE ONE Administration <Rafael Subramanian - Last Filed: 02/21/18 10:20> Medical Decision Making - Medical Decision Making 02/21/18 05:56 87 F with unwitnessed fall. Possible syncope as pt has no recolection of events. On exam, pt with R shoulder deformity, concerning for fx vs dislocation. No evidence of head or neck injury but will obtain CT given age and unclear mechanism. - CT head/c-spine - XR R shoulder, humerus - labs, trop - Pain control 02/21/18 07:02 CTs negative XR with dislocation, ?humeral neck fx on my read Will consult ortho. Pt to be admitted for unwitnessed fall, possible syncope 02/21/18 07:49 Pt admitted to hospitalist. <Rupert Islas - Last Filed: 02/21/18 07:49> - Medical Decision Making 02/21/18 10:19 Patient presented with right anterior shoulder dislocation after a syncopal episode at [facility]. Initial syncope workup is negative. Right shoulder dislocation was reduced using traction counter traction with external rotation under moderate sedation. Reduction successful by fourth or PA. Will admit. <Rafael Subramanian - Last Filed: 02/21/18 10:20> *DC/Admit/Observation/Transfer - Discharge Dispostion Decision to Admit order: Yes - Attestations Physician Attestion: 02/21/18 07:50 I, Dr. Rupert Islas MD, attest that this document has been prepared under my direction and personally reviewed by me in its entirety. I further attest, that it accurately reflects all work, treatment, procedures and medical decision -making performed by me. <Rupert Islas - Last Filed: 02/21/18 07:49> - Discharge Dispostion Decision to Admit order: Yes <Rafael Subramanian - Last Filed: 02/21/18 10:20> Diagnosis at time of Disposition: Fall Qualifiers: Encounter type: initial encounter Qualified Code(s): W19.XXXA - Unspecified fall, initial encounter Syncope Qualifiers: Syncope type: unspecified Qualified Code(s): R55 - Syncope and collapse Dislocation, shoulder, anterior Qualifiers: Encounter type: initial encounter Laterality: right Qualified Code(s): S43.014A - Anterior dislocation of right humerus, initial encounter - Discharge Dispostion Condition at time of disposition: Fair
[2018-02-21] MEDS ORDERED: PROPOFOL 1,000,000 MCG/100 ML VIAL ONE (09:23)
[2018-02-21] MEDS ORDERED: MIDAZOLAM HCL 2 MG/2 ML SINGLE DOSE VIAL ONE (09:43)
[2018-02-21] MEDS ORDERED: PROPOFOL 200 MG/20 ML VIAL IVPUSH ONE (10:20)
[2018-02-21] MEDS ORDERED: MIDAZOLAM HCL 2 MG/2 ML SINGLE DOSE VIAL IVPUSH ONE (10:20)
--- NOTE | 2018-02-21 10:50 | HP ---
Admitting History and Physical - Primary Care Physician PCP: Adolph Vogel - Admission Chief Complaint: s/p fall History of Present Illness: ER HISTORY The patient is a 87 year old female, with a significant past medical history of dementia, COPD, DM, HTN, HLD and GERD, who presents to the emergency department via EMS from [facility] s/p unwitnessed fall with pain to the right arm and shoulder. As per patient, she was lying and bed, and the next thing she realizes she is waking up on the floor. She reports the pain is worse with any movement of her right hand. She endorses a mild headache but does not believe she hit her head. She denies recent fevers, chills, or dizziness. She denies recent nausea, vomit , diarrhea or constipation. She denies recent dysuria, frequency, urgency or hematuria. She denies recent chest pain or shortness of breath or palpitations. Pt seen by me in ER Family at bedside She had dislocated her right shoulder when she fell, when it was reduced in the ER , it had dislocated again. Now its reduced-- arm brace in place. Spoke with ER attending and Ortho PA. Family states that she had left shoulder dislocation 2 years ago and was reduced. 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 Cardiovascular: Yes: HTN, Hyperlipdemia Musculoskeletal: Yes: Chronic low back pain, Osteoarthritis - Smoking History Smoking history: Never smoked Have you smoked in the past 12 months: No Aproximately how many cigarettes per day: 0 If you are a former smoker, when did you quit?: 30 years ago - Alcohol/Substance Use Hx Alcohol Use: No - Social History ADL: Independent History of Recent Travel: No Home Medications - Allergies Allergies/Adverse Reactions: Allergies Allergy/AdvReac Type Severity Reaction Status Date / Time No Known Allergies Allergy Verified 02/21/18 04:49 - Home Medications Home Medications: Ambulatory Orders Aspirin [Aspirin EC] 81 mg PO DAILY 12/04/17 Ranitidine [Zantac -] 150 mg PO BID 12/04/17 Simvastatin [Zocor -] 20 mg PO HS 12/04/17 Quetiapine Fumarate [Seroquel -] 25 mg PO HS #30 tablet 12/07/17 Valsartan [Diovan] 40 mg PO DAILY #30 tablet 12/07/17 Review of Systems - Review of Systems Constitutional: denies: Chills, Fever Musculoskeletal: reports: Extremity Pain Physical Examination Vital Signs: Vital Signs Temperature 97.2 F L 02/21/18 04:49 Pulse Rate 64 02/21/18 10:27 Respiratory Rate 20 02/21/18 10:27 Blood Pressure 116/48 02/21/18 10:27 O2 Sat by Pulse Oximetry (%) 99 02/21/18 10:27 Constitutional: Yes: No Distress, Calm Cardiovascular: Yes: Regular Rate and Rhythm Respiratory: Yes: CTA Bilaterally Gastrointestinal: Yes: Normal Bowel Sounds, Soft. No: Tenderness Edema: No Neurological: Yes: Alert Labs: CBC, BMP 02/21/18 05:16 02/21/18 05:16 Imaging - Results Chest X-ray: Image Reviewed X-ray: Report Reviewed EKG: Image Reviewed (sinus bradycardia) Problem List - Problems (1) Dislocation, shoulder, anterior Code(s): S43.016A - ANTERIOR DISLOCATION OF UNSPECIFIED HUMERUS, INIT ENCNTR Qualifiers: Encounter type: initial encounter Laterality: right Qualified Code(s): S43.014A - Anterior dislocation of right humerus, initial encounter (2) Fall Code(s): W19.XXXA - UNSPECIFIED FALL, INITIAL ENCOUNTER Qualifiers: Encounter type: initial encounter Qualified Code(s): W19.XXXA - Unspecified fall, initial encounter (3) Frequent falls Code(s): R29.6 - REPEATED FALLS Assessment/Plan PLAN Shoulder reduced in ER Immobilizer in place pain control PT kathleen Spoke with briefcase sewer-- will check cardiac enzymes Unlike she syncopized-- appears to be mechanical fall Head CT negative Tele monitoring for [address] in observation and dc in AM with [employer] and VNS
[2018-02-21] MEDS ORDERED: ACETAMINOPHEN WITH CODEINE 300MG/30MG TABLET PO PRN (10:55)
--- NOTE | 2018-02-21 11:03 | CONSULT ---
Consult Consult Specialty:: orthopedics Reason for Consultation:: Right shoulder - History of Present Illness Chief Complaint: Right shoulder x4 hours History of Present Illness: 87y/o female c/o right shoulder pain which began earlier this morning when she fell out of bed. Since then she has had pain in the left shoulder which is worse with use and better with rest. She was taken to the ER and had x-rays and was diagnosed with a anterior shoulder dislocation. Orthopedics was consulted. The pain does no radiate. There are no other associated, aggravating or relieving factors. - History Source Limitations to Obtaining History: No Limitations - Past Medical History Cardio/Vascular: Yes: HTN, Hyperlipdemia Musculoskeletal: Yes: Chronic low back pain, Osteoarthritis - Alcohol/Substance Use Hx Alcohol Use: No - Smoking History Smoking history: Never smoked Have you smoked in the past 12 months: No Aproximately how many cigarettes per day: 0 If you are a former smoker, when did you quit?: 30 years ago - Social History ADL: Independent History of Recent Travel: No Home Medications - Allergies Allergies/Adverse Reactions: Allergies Allergy/AdvReac Type Severity Reaction Status Date / Time No Known Allergies Allergy Verified 02/21/18 04:49 - Home Medications Home Medications: Ambulatory Orders Aspirin [Aspirin EC] 81 mg PO DAILY 12/04/17 Ranitidine [Zantac -] 150 mg PO BID 12/04/17 Simvastatin [Zocor -] 20 mg PO HS 12/04/17 Quetiapine Fumarate [Seroquel -] 25 mg PO HS #30 tablet 12/07/17 Valsartan [Diovan] 40 mg PO DAILY #30 tablet 12/07/17 Review of Systems - Review of Systems Constitutional: reports: No Symptoms Eyes: reports: No Symptoms HENT: reports: No Symptoms Neck: reports: No Symptoms Cardiovascular: reports: No Symptoms Respiratory: reports: No Symptoms Gastrointestinal: reports: No Symptoms Genitourinary: reports: No Symptoms Breasts: reports: No Symptoms Reported Musculoskeletal: reports: Extremity Pain Integumentary: reports: No Symptoms Neurological: reports: No Symptoms Endocrine: reports: No Symptoms Hematology/Lymphatic: reports: No Symptoms Psychiatric: reports: No Symptoms Physical Exam Vital Signs: Vital Signs Temperature 97.2 F L 02/21/18 04:49 Pulse Rate 64 02/21/18 10:27 Respiratory Rate 20 02/21/18 10:27 Blood Pressure 116/48 02/21/18 10:27 O2 Sat by Pulse Oximetry (%) 99 02/21/18 10:27 Constitutional: Yes: Well Nourished, No Distress, Calm Musculoskeletal: Yes: Other (Cervical spine: no midline tenderness, full motion , Negative sperlings sign. Right shoulder: Deformity of the left shoulder consistant with anterior dislocation. Pain with motion. No tenderness of the humerus, elbow, forearm, wrist or fingers. NVID.) Labs: CBC, BMP 02/21/18 05:16 02/21/18 05:16 Imaging - Results X-ray: Report Reviewed, Image Reviewed (X-rays show anterior dislocaiton of right humerus at shoulder post reduction x-rays show reduction of glenohumeral joint) Assessment/Plan #1 right shoulder anterior dislocation -Discussed today's findings and treatment options with the patient and family. I have recommended a closed reduction of the right shoulder with anesthesia. They would like to proceed. Closed reduction with anaesthesia, right shoulder glenohumeral joint: The patient was placed on the bed in a supine position. A sheet for counter traction was placed around the patient and secured. The patient was then sedated by the ER staff using propofol and versed. Traction was applied and the shoulder was manipulated and a reduction of the joint was achieved. The patient tolerated the procedure well. The shoulder was found to be unstable when externally rotated and the patient was placed into a shoulder immoblizer with the joint reduced. This procedure was performed under the direct supervision of Dr. Yaya Kong. NV exam normal after the procedure was performed. 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
--- NOTE | 2018-02-21 12:47 | EKG ---
Test Reason : Blood Pressure : / mmHG Vent. Rate : 057 BPM Atrial Rate : 057 BPM P-R Int : 146 ms QRS Dur : 090 ms QT Int : 476 ms P-R-T Axes : 051 010 040 degrees QTc Int : 463 ms SINUS BRADYCARDIA LOW VOLTAGE QRS BORDERLINE ECG WHEN COMPARED WITH ECG OF 04-DEC-2017 05:56, NO SIGNIFICANT CHANGE WAS FOUND Confirmed by ARMANDO CARREON MD ([id number]) on 02/21/2018 12:46:48 PM Referred By: Confirmed By:ARMANDO CARREON MD
[2018-02-21] MEDS: RANITIDINE HCL 150 MG TABLET (FP) PO SCH (21:37)
[2018-02-21] MEDS ORDERED: ATORVASTATIN CA 10 MG TABLET (FP) PO SCH (22:00)
[2018-02-21] MEDS ORDERED: QUEtiapine FUMARATE 25 MG TABLET (FP) PO SCH (22:00)
[2018-02-22 06:28] LABS: BASO % 0.8 % (0-2.0); EOS % 4.1 % (0-4.5); HEMATOCRIT 36.1 % (32.4-45.2); HEMOGLOBIN 12.1 GM/dL (10.7-15.3); LYMPH % 20.5 % (8-40); MCH 30.9 pg (25.7-33.7); MCHC 33.6 g/dl (32.0-36.0); MEAN CELL VOLUME 91.9 fl (80-96); MEAN PLT VOLUME 7.5 fl (7.5-11.1); MONO % 12.9 % (3.8-10.2); NEUT % 61.7 % (42.8-82.8); PLATELET COUNT 237 K/MM3 (134-434); RBC 3.93 M/mm3 (3.60-5.2); RDW 14.2 % (11.6-15.6); WHITE BLOOD COUNT 5.3 K/mm3 (4.0-10.0)
[2018-02-22 06:53] LABS: CHLORIDE 111 mmol/L (98-107); SODIUM 144 mmol/L (136-145)
[2018-02-22 07:09] LABS: ALBUMIN 3.3 g/dl (3.4-5.0); ALK PHOS 64 U/L (45-117); ANION GAP 7 (8-16); BILIRUBIN,TOTAL 0.6 mg/dL (0.2-1.0); BLOOD UREA NITROGEN 16 mg/dL (7-18); CO2 26 mmol/L (21-32); CREATININE 0.4 mg/dL (0.55-1.02); GLUCOSE,RANDOM 89 mg/dL (74-106); SGOT/AST 17 U/L (15-37); SGPT/ALT 19 U/L (12-78); TOT PROT 5.8 g/dl (6.4-8.2)
[2018-02-22] MEDS: RANITIDINE HCL 150 MG TABLET (FP) PO SCH (09:08)
[2018-02-22] MEDS ORDERED: VALSARTAN 40 MG TABLET (FP) PO SCH (10:00)
[2018-02-22 10:32] VITALS: BP 134/84; PULSE 82; TEMP 98
--- NOTE | 2018-02-22 10:46 | DS ---
Physical Examination Vital Signs: Vital Signs Temperature 98 F 02/22/18 09:00 Pulse Rate 82 02/22/18 09:00 Respiratory Rate 18 02/22/18 09:00 Blood Pressure 134/84 02/22/18 09:00 O2 Sat by Pulse Oximetry (%) 97 02/22/18 04:00 Constitutional: Yes: No Distress, Calm Cardiovascular: Yes: Regular Rate and Rhythm Respiratory: Yes: CTA Bilaterally Gastrointestinal: Yes: Normal Bowel Sounds. No: Tenderness Edema: No Labs: CBC, BMP 02/22/18 05:30 02/22/18 05:30 Discharge Summary Reason For Visit: FAll, ANTERIOR SHOULDER DISLOCATION,FALL Current Active Problems Dislocation, shoulder, anterior (Acute) Fall (Acute) Syncope (Acute) Other Procedures: Admitted for fall Hospital Course: Admitted for fall- unwitnessed- unlikely to be syncope-- carotid doppler negative, cardiac enzymes negative Telemetry uneventful She had right shoulder dislocation-- reduced in ER- now has an immobilizer Seen by Ortho Stable for dc to home with home care and home PT Condition: Fair - Instructions Referrals: Chivo Kendrick [Primary Care Provider] - Disposition: HOME - Home Medications Comprehensive Discharge Medication List: Ambulatory Orders Aspirin [Aspirin EC] 81 mg PO DAILY 12/04/17 Ranitidine [Zantac -] 150 mg PO BID 12/04/17 Simvastatin [Zocor -] 20 mg PO HS 12/04/17 Quetiapine Fumarate [Seroquel -] 25 mg PO HS #30 tablet 12/07/17 Valsartan [Diovan] 40 mg PO DAILY #30 tablet 12/07/17 Acetaminophen W/ Codeine #3 [Tylenol # 3 -] 1 tab PO Q6H PRN #30 tablet MDD 4
== END 2018-02-22 13:54 | disposition home or self-care (01) ==
LOC: JER 04:38 → UNDOADMOB 07:50 → JERBED 07:50 → OBSVTOIN 10:18 → INTOOBSV 10:18 → J4W 11:48 → JERBED 11:48 → J4W 12:10
PROVIDERS: ADMIT Internal Medicine; ATTEND Internal Medicine
PROC: 0RSJXZZ Reposition Right Shoulder Joint, External Approach (ICD-10-PCS; principal; 2018-02-21)
DX: S43.014A Anterior dislocation of right humerus, initial encounter (principal); R55 Syncope and collapse; I10 Essential (primary) hypertension; E78.5 Hyperlipidemia, unspecified; E11.9 Type 2 diabetes mellitus without complications; F03.90 Unspecified dementia, unspecified severity, without behavioral disturbance, psychotic disturbance, mood disturbance, and anxiety; J44.9 Chronic obstructive pulmonary disease, unspecified; K21.9 Gastro-esophageal reflux disease without esophagitis; R29.6 Repeated falls; Z79.82 Long term (current) use of aspirin; W06.XXXA Fall from bed, initial encounter; Z91.81 History of falling; Y93.89 Activity, other specified; Y92.122 Bedroom in nursing home as the place of occurrence of the external cause; M19.90 Unspecified osteoarthritis, unspecified site; M54.5 Low back pain; G89.29 Other chronic pain
CPT/HCPCS: 24655; 36415; 70450-TC; 71046-TC-FY; 72170-TC-FY; 73030-TC-RT-FY; 73060-TC-RT-FY; 80053; 82550; 82553; 82962; 84484; 85025; 85610; 85730; 93005; 93010; 93880-TC; 97161-GP; 99285-25; G0378

== ENCOUNTER 2018-06-28 12:56 | Emergency (ER) | payer OTHER ==
[2018-06-28 13:07] VITALS: BMI 26.2
--- NOTE | 2018-06-28 13:20 | PDOC ---
History of Present Illness - General Chief Complaint: Injury Stated Complaint: Injury Time Seen by Provider: 06/28/18 13:04 History Source: Patient, Family Exam Limitations: Dementia - History of Present Illness Initial Comments: 06/28/18 13:15 This is an 88 YOF with h/o dementia, frequent falls resulting in injuries including anterior shoulder dislocation, syncope, COPD, HTN, and HLD who was BIBEMS after suffering a fall at home. 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 They state that she did not have preceding symptoms and did not have any subsequent symptoms other than pain to the right flank and RUQ (patient points) as well as the right lower ribs. She did not take any medications for the pain. This is similar to the patient's many prior falls. The patient herself cannot recall any of the events from earlier today but notes right upper abdominal pain which worsens with deep breathing. EMS states that the patient's vitals were stable en route except that her pulse ox dropped to 90% on RA. Past History - Past Medical History Allergies/Adverse Reactions: Allergies Allergy/AdvReac Type Severity Reaction Status Date / Time No Known Allergies Allergy Verified 06/28/18 13:03 Home Medications: Ambulatory Orders Acetaminophen W/ Codeine #3 [Tylenol # 3 -] 1 tab PO Q6H PRN #30 tablet MDD 4 Aspirin [Aspirin EC] 81 mg PO DAILY #30 tablet. 02/22/18 Cyanocobalamin (Vitamin B-12) [Vitamin B-12] 1,000 mcg PO DAILY #30 tablet.er Quetiapine Fumarate [Seroquel -] 25 mg PO HS #30 tablet 02/22/18 Ranitidine [Zantac -] 150 mg PO BID #60 tablet 02/22/18 Sertraline HCl [Zoloft] 25 mg PO DAILY #30 tablet 02/22/18 Simvastatin [Zocor -] 20 mg PO HS #30 tablet 02/22/18 Valsartan [Diovan] 40 mg PO DAILY #30 tablet 02/22/18 Melatonin 5 mg PO HS 06/28/18 COPD: Yes Dementia: Yes Diabetes: Yes GI Disorders: Yes (GERD) HTN: Yes Hypercholesterolemia: Yes - Surgical History Abdominal Surgery: Yes (Fibroidectomy) Appendectomy: Yes - Immunization History Immunization Up to Date: No - Suicide/Smoking/Psychosocial Hx Smoking Status: No Smoking History: Never smoked Have you smoked in the past 12 months: No Number of Cigarettes Smoked Daily: 0 If you are a former smoker, when did you quit?: 30 years ago Information on smoking cessation initiated: No Hx Alcohol Use: No Drug/Substance Use Hx: No Substance Use Type: None Hx Substance Use Treatment: No Review of Systems - Review of Systems Able to Perform ROS?: No (dementia) *Physical Exam - Vital Signs Last Vital Signs Temp Pulse Resp BP Pulse Ox 98.6 F 71 20 132/75 97 06/28/18 13:04 06/28/18 13:04 06/28/18 13:04 06/28/18 13:04 06/28/18 13:04 TRAUMA ASSESSMENT: protecting airway, equal bilateral breath sounds, no flail chest, abdomen soft, pelvis stable, no thigh hematoma, no step-off or deformity of C/T/L spine, no back hematoma, no blood at the urethral meatus, PERRLA, moving all extremities, no cephalohematoma, no raccoon eyes, no velazquez sign, no hemotympanum, no CSF rhinorrhea/otorrhea, no jaw malocclusion GENERAL: pleasant elderly female who is Maldivian-speaking only, nontoxic and well -appearing, nourished, A/Ox4, no acute distress, speaking in full sentences, answers simple questions appropriately HEENT: PERRLA, EOMI, moist mucous membranes, no posterior pharyngeal erythema, no tonsillar swelling or exudates, no cervical lymphadenopathy NECK: No midline ttp, no spinal stepoff or deformity, full ROM, supple CARDIOVASCULAR: Regular rate and rhythm, normal S1S2, no MGR, radial and DP pulses 2+ and symmetric, capillary refill <2 seconds, extremities warm and well- perfused Chest wall: Normal appearance, no rash, no bruising, no costal stepoff or deformity, nontender to compression LUNGS/RESPIRATORY: No respiratory distress, normal and symmetric chest movements during respirations, lungs CTA bilaterally, equal breath sounds, no cyanosis, no nail clubbing GI/ABDOMEN: Normal symmetric appearance, normoactive bowel sounds, soft, no tenderness to palpation, no midline pulsatile masses, no palpated organomegaly : No CVA tenderness, normal external appearance, no lesions BACK: No midline ttp or stepoff or deformity of thoracic or lumbar spine EXTREMITIES: distal pulses 2+, warm and well-perfused, no LE edema SKIN: skin warm and dry, no pallor, no jaundice, no bruising, no rash, no skin breakdown, no cuts NEUROLOGICAL: GCS 15, CN II-XII grossly intact, ambulating with normal gait, moving all extremities, 5/5 strength proximally and distally, no facial droop, no decreased sensation ED Treatment Course - LABORATORY CBC & Chemistry Diagram: 06/28/18 14:00 06/28/18 14:00 - RADIOLOGY Radiology Studies Ordered: Category Date Time Status ABDOMEN & PELVIS CT W/O CONTR [CT] Stat CT Scan 06/28/18 13:[address] WITHOUT CONTRAST [CT] Stat CT Scan 06/28/18 13:10 Ordered HIP-RIGHT [RAD] Stat Radiology 06/28/18 13:11 Ordered PELVIS [RAD] Stat Radiology 06/28/18 13:11 Ordered Medical Decision Making - Medical Decision Making 06/28/18 13:26 Initial Vital Signs Temp Pulse Resp BP Pulse Ox 98.6 F 71 20 132/75 97 06/28/18 13:04 06/28/18 13:04 06/28/18 13:04 06/28/18 13:04 06/28/18 13:[address] Chest/Abdomen/Pelvis dry, Right Hip/Pelvis XR, EKG, labs as noted below. 06/28/18 13:28 *DC/Admit/Observation/Transfer Diagnosis at time of Disposition: Fall from ground level Contusion Qualifiers: Encounter type: initial encounter Contusion area: abdominal wall Qualified Code (s): S30.1XXA - Contusion of abdominal wall, initial encounter Hematuria Qualifiers: Hematuria type: unspecified type Qualified Code(s): R31.9 - Hematuria, unspecified - Discharge Dispostion Condition at time of disposition: Stable Decision to Admit order: No - Referrals Referrals: Chivo Kenrdick [Primary Care Provider] - - Patient Instructions Printed Discharge Instructions: How to Prevent Falls Additional Instructions: YOU WERE SEEN IN THE ER FOR A FALL AND A CONTUSION TO THE SKIN AROUND YOUR ABDOMEN. WE DID LABORATORY WORK, AN ELECTROCARDIOGRAM, AND CT SCANS, WHICH DID NOT SHOW ANY NEW CONCERNING FINDINGS. YOU HAD A SMALL AMOUNT OF BLOOD IN YOUR URINE AND SHOULD FOLLOW UP WITH YOUR PRIMARY DOCTOR FOR A REPEAT URINE TEST. AFTER OUR ASSESSMENT, WE DO NOT BELIEVE YOU ARE HAVING A MEDICAL EMERGENCY AT THIS TIME, AND WE BELIEVE YOU ARE SAFE TO GO HOME. PLEASE FOLLOW UP WITH YOUR PRIMARY CARE PROVIDER IN 1-3 DAYS. CALL THEIR CLINIC SOON POSSIBLE, TELL THEM YOU WERE SEEN IN THE ER, AND TELL THEM YOU NEED AN APPOINTMENT. IF YOU HAVE ANY NEW OR WORSENING SYMPTOMS, ESPECIALLY WORSENING BLOOD IN THE URINE, WORSENING PAIN, DIFFICULTY BREATHING, SEVERE BACK PAIN, LOSS OF CONSCIOUSNESS, OR OTHER FALLS, PLEASE COME BACK TO THE ER AT ANY TIME (24 HOURS A DAY). IF YOU ARE HAVING SEVERE OR LIFE THREATENING SYMPTOMS, OR SYMPTOMS THAT MAKE IT UNSAFE TO DRIVE OR HAVE SOMEONE DRIVE YOU, PLEASE CALL 911. Print Language: PERSIAN - Post Discharge Activity
[2018-06-28 14:06] LABS: BASO % 0.6 % (0-2.0); EOS % 2.8 % (0-4.5); HEMATOCRIT 40.8 % (32.4-45.2); HEMOGLOBIN 13.5 GM/dL (10.7-15.3); LYMPH % 13.8 % (8-40); MCH 30.4 pg (25.7-33.7); MCHC 33.1 g/dl (32.0-36.0); MEAN CELL VOLUME 91.7 fl (80-96); MEAN PLT VOLUME 7.4 fl (7.5-11.1); MONO % 7.2 % (3.8-10.2); NEUT % 75.6 % (42.8-82.8); PLATELET COUNT 266 K/MM3 (134-434); RBC 4.45 M/mm3 (3.60-5.2); RDW 13.9 % (11.6-15.6); WHITE BLOOD COUNT 6.7 K/mm3 (4.0-10.0)
[2018-06-28 14:26] LABS: INR 0.99 (0.83-1.09); PROTHROMBIN TIME (PATIENT) 11.7 SEC (9.7-13.0)
[2018-06-28 14:51] LABS: ALBUMIN 3.7 g/dl (3.4-5.0); ALK PHOS 83 U/L (45-117); ANION GAP 5 MMOL/L (8-16); BILIRUBIN,TOTAL 0.4 mg/dL (0.2-1); BLOOD UREA NITROGEN 23 mg/dL (7-18); CALCIUM 9.1 mg/dL (8.5-10.1); CHLORIDE 109 mmol/L (98-107); CO2 28 mmol/L (21-32); CREATININE 0.5 mg/dL (0.55-1.3); GLUCOSE,RANDOM 91 mg/dL (74-106); POTASSIUM 4.4 mmol/L (3.5-5.1); SGOT/AST 35 U/L (15-37); SGPT/ALT 39 U/L (13-61); SODIUM 142 mmol/L (136-145); TOT PROT 6.9 g/dl (6.4-8.2)
[2018-06-28 15:36] LABS: URINE APPEARANCE SLCLOUDY; URINE BILIRUBIN NEGATIVE (<2.0 mg/dL); URINE COLOR YELLOW; URINE GLUCOSE (UA) NEGATIVE (NEGATIVE); URINE KETONE NEGATIVE (NEGATIVE); URINE LEUK ESTERASE NEGATIVE (NEGATIVE); URINE NITRITE POSITIVE (NEGATIVE); URINE PROTEIN NEGATIVE (NEGATIVE); URINE UROBILINOGEN NEGATIVE mg/dL (0.2-1.0)
--- NOTE | 2018-06-28 15:40 | EKG ---
Test Reason : Blood Pressure : / mmHG Vent. Rate : 065 BPM Atrial Rate : 065 BPM P-R Int : 166 ms QRS Dur : 090 ms QT Int : 438 ms P-R-T Axes : 036 -23 032 degrees QTc Int : 455 ms NORMAL SINUS RHYTHM NORMAL ECG WHEN COMPARED WITH ECG OF 21-FEB-2018 05:31, NO SIGNIFICANT CHANGE WAS FOUND Confirmed by KELLEY SLATER MD ([id number]) on 06/28/2018 3:40:12 PM Referred By: Confirmed By:KELLEY SLATER MD
[2018-06-28 15:57] LABS: EPI CELLS RARE /HPF (FEW); URINE BACTERIA RARE /hpf (NONE SEEN); URINE MUCUS RARE
--- NOTE | 2018-06-28 16:47 | PDOC ---
*Physical Exam - Vital Signs Last Vital Signs Temp Pulse Resp BP Pulse Ox 98.6 F 71 20 132/75 97 06/28/18 13:04 06/28/18 13:04 06/28/18 13:04 06/28/18 13:04 06/28/18 13:04 - Physical Exam Comments: 06/28/18 20:27 gen: awake, pleasantly demented heart: +s1s2 reg Lungs: cta b/l abd: soft, nt/nd +bs ext: no c/c/e ED Treatment Course - LABORATORY CBC & Chemistry Diagram: 06/28/18 14:00 06/28/18 14:00 - ADDITIONAL ORDERS Additional order review: Laboratory Results 06/28/18 06/28/18 06/28/18 15:00 14:00 14:00 PT with INR INR Sodium Potassium Chloride Carbon Dioxide Anion Gap BUN Creatinine Creat Clearance w eGFR Random Glucose Calcium Total Bilirubin AST ALT Alkaline Phosphatase Creatine Kinase 52 Troponin I < 0.02 Total Protein Albumin Urine Color Yellow Urine Appearance Slcloudy Urine pH 6.0 Ur Specific Center 1.019 Urine Protein Negative Urine Glucose (UA) Negative Urine Ketones Negative Urine Blood 1+ H Urine Nitrite Positive Urine Bilirubin Negative Urine Urobilinogen Negative Ur Leukocyte Esterase Negative Urine WBC (Auto) 3 Urine RBC (Auto) 16 Ur Epithelial Cells Rare Urine Bacteria Rare Urine Mucus Rare Blood Type O POSITIVE Antibody Screen Negative 06/28/18 06/28/18 14:00 14:00 PT with INR 11.70 INR 0.99 Sodium 142 Potassium 4.4 Chloride 109 H Carbon Dioxide 28 Anion Gap 5 L BUN 23 H Creatinine 0.5 L Creat Clearance w eGFR > 60 Random Glucose 91 Calcium 9.1 Total Bilirubin 0.4 AST 35 ALT 39 Alkaline Phosphatase 83 Creatine Kinase Troponin I Total Protein 6.9 Albumin 3.7 Urine Color Urine Appearance Urine pH Ur Specific Center Urine Protein Urine Glucose (UA) Urine Ketones Urine Blood Urine Nitrite Urine Bilirubin Urine Urobilinogen Ur Leukocyte Esterase Urine WBC (Auto) Urine RBC (Auto) Ur Epithelial Cells Urine Bacteria Urine Mucus Blood Type Antibody Screen 06/28/18 14:00 RBC 4.45 MCV 91.7 MCHC 33.1 RDW 13.9 MPV 7.4 L Neutrophils % 75.6 D Lymphocytes % 13.8 D Monocytes % 7.2 Eosinophils % 2.8 Basophils % 0.6 Medical Decision Making - Medical Decision Making 06/28/18 20:28 a/p: 88yo female signed out by the prior attending pending ct imaging -pt with mechanical fall and R sided pain -ct chest shows 11th rib fx -on re-eval: pt denies pain -pt takes deep breath without difficulty -pt requesting to go home family requesting to home will give incentive spirometry will d/c to home discussed all reasons to return to the ED *DC/Admit/Observation/Transfer Diagnosis at time of Disposition: Fall from ground level, Rib fracture Contusion Qualifiers: Encounter type: initial encounter Contusion area: abdominal wall Qualified Code (s): S30.1XXA - Contusion of abdominal wall, initial encounter Hematuria Qualifiers: Hematuria type: unspecified type Qualified Code(s): R31.9 - Hematuria, unspecified - Discharge Dispostion Disposition: HOME Condition at time of disposition: Stable Decision to Admit order: No - Referrals Referrals: Chivo Kendrick [Primary Care Provider] - - Patient Instructions Printed Discharge Instructions: How to Prevent Falls Additional Instructions: YOU WERE SEEN IN THE ER FOR A FALL AND A CONTUSION TO THE SKIN AROUND YOUR ABDOMEN. WE DID LABORATORY WORK, AN ELECTROCARDIOGRAM, AND CT SCANS, WHICH DID NOT SHOW ANY NEW CONCERNING FINDINGS. YOU HAD A SMALL AMOUNT OF BLOOD IN YOUR URINE AND SHOULD FOLLOW UP WITH YOUR PRIMARY DOCTOR FOR A REPEAT URINE TEST. AFTER OUR ASSESSMENT, WE DO NOT BELIEVE YOU ARE HAVING A MEDICAL EMERGENCY AT THIS TIME, AND WE BELIEVE YOU ARE SAFE TO GO HOME. PLEASE FOLLOW UP WITH YOUR PRIMARY CARE PROVIDER IN 1-3 DAYS. CALL THEIR CLINIC SOON POSSIBLE, TELL THEM YOU WERE SEEN IN THE ER, AND TELL THEM YOU NEED AN APPOINTMENT. IF YOU HAVE ANY NEW OR WORSENING SYMPTOMS, ESPECIALLY WORSENING BLOOD IN THE URINE, WORSENING PAIN, DIFFICULTY BREATHING, SEVERE BACK PAIN, LOSS OF CONSCIOUSNESS, OR OTHER FALLS, PLEASE COME BACK TO THE ER AT ANY TIME (24 HOURS A DAY). IF YOU ARE HAVING SEVERE OR LIFE THREATENING SYMPTOMS, OR SYMPTOMS THAT MAKE IT UNSAFE TO DRIVE OR HAVE SOMEONE DRIVE YOU, PLEASE CALL 911. Print Language: SLOVENIAN - Post Discharge Activity - Attestations Physician Attestion: 06/28/18 20:30 I, Dr. Niurka Prado, DO, attest that this document has been prepared under my direction and personally reviewed by me in its entirety. I further attest, that it accurately reflects all work, treatment, procedures and medical decision -making performed by me.
[2018-06-28 19:23] VITALS: PULSE 67; TEMP 98
--- NOTE | 2018-06-28 20:29 | PDOC ---
*Physical Exam - Vital Signs Last Vital Signs Temp Pulse Resp BP Pulse Ox 98.0 F 67 20 145/67 98 06/28/18 19:22 06/28/18 19:22 06/28/18 19:22 06/28/18 19:22 06/28/18 19:22 ED Treatment Course - LABORATORY CBC & Chemistry Diagram: 06/28/18 14:00 06/28/18 14:00 - ADDITIONAL ORDERS Additional order review: Laboratory Results 06/28/18 06/28/18 06/28/18 15:00 14:00 14:00 PT with INR INR Sodium Potassium Chloride Carbon Dioxide Anion Gap BUN Creatinine Creat Clearance w eGFR Random Glucose Calcium Total Bilirubin AST ALT Alkaline Phosphatase Creatine Kinase 52 Troponin I < 0.02 Total Protein Albumin Urine Color Yellow Urine Appearance Slcloudy Urine pH 6.0 Ur Specific [place] 1.019 Urine Protein Negative Urine Glucose (UA) Negative Urine Ketones Negative Urine Blood 1+ H Urine Nitrite Positive Urine Bilirubin Negative Urine Urobilinogen Negative Ur Leukocyte Esterase Negative Urine WBC (Auto) 3 Urine RBC (Auto) 16 Ur Epithelial Cells Rare Urine Bacteria Rare Urine Mucus Rare Blood Type O POSITIVE Antibody Screen Negative 06/28/18 06/28/18 14:00 14:00 PT with INR 11.70 INR 0.99 Sodium 142 Potassium 4.4 Chloride 109 H Carbon Dioxide 28 Anion Gap 5 L BUN 23 H Creatinine 0.5 L Creat Clearance w eGFR > 60 Random Glucose 91 Calcium 9.1 Total Bilirubin 0.4 AST 35 ALT 39 Alkaline Phosphatase 83 Creatine Kinase Troponin I Total Protein 6.9 Albumin 3.7 Urine Color Urine Appearance Urine pH Ur Specific [place] Urine Protein Urine Glucose (UA) Urine Ketones Urine Blood Urine Nitrite Urine Bilirubin Urine Urobilinogen Ur Leukocyte Esterase Urine WBC (Auto) Urine RBC (Auto) Ur Epithelial Cells Urine Bacteria Urine Mucus Blood Type Antibody Screen 06/28/18 14:00 RBC 4.45 MCV 91.7 MCHC 33.1 RDW 13.9 MPV 7.4 L Neutrophils % 75.6 D Lymphocytes % 13.8 D Monocytes % 7.2 Eosinophils % 2.8 Basophils % 0.6 Medical Decision Making - Medical Decision Making 06/29/18 06:33 Pt signed out to me by Dr. Finley. Awaiting CT results. CT showed fractured R rib #11 with fluid in pleural space. Pt safe for d/c home. will be given inspirometer and d/c with pulm f/u. *DC/Admit/Observation/Transfer Diagnosis at time of Disposition: Fall from ground level, Rib fracture Contusion Qualifiers: Encounter type: initial encounter Contusion area: abdominal wall Qualified Code (s): S30.1XXA - Contusion of abdominal wall, initial encounter Hematuria Qualifiers: Hematuria type: unspecified type Qualified Code(s): R31.9 - Hematuria, unspecified - Discharge Dispostion Disposition: HOME Condition at time of disposition: Stable - Referrals Referrals: Chivo Kendrick [Primary Care Provider] - - Patient Instructions Printed Discharge Instructions: How to Prevent Falls Additional Instructions: YOU WERE SEEN IN THE ER FOR A FALL AND A CONTUSION TO THE SKIN AROUND YOUR ABDOMEN. WE DID LABORATORY WORK, AN ELECTROCARDIOGRAM WAS NORMAL. CT SCAN SHOWED A FRACTURE IN YOUR 11TH RIB. YOU HAD A SMALL AMOUNT OF BLOOD IN YOUR URINE AND SHOULD FOLLOW UP WITH YOUR PRIMARY DOCTOR FOR A REPEAT URINE TEST. AFTER OUR ASSESSMENT, WE DO NOT BELIEVE YOU ARE HAVING A MEDICAL EMERGENCY AT THIS TIME, AND WE BELIEVE YOU ARE SAFE TO GO HOME. PLEASE FOLLOW UP WITH YOUR PRIMARY CARE PROVIDER IN 1-3 DAYS. CALL THEIR CLINIC SOON POSSIBLE, TELL THEM YOU WERE SEEN IN THE ER, AND TELL THEM YOU NEED AN APPOINTMENT. IF YOU HAVE ANY NEW OR WORSENING SYMPTOMS, ESPECIALLY WORSENING BLOOD IN THE URINE, WORSENING PAIN, DIFFICULTY BREATHING, SEVERE BACK PAIN, LOSS OF CONSCIOUSNESS, OR OTHER FALLS, PLEASE COME BACK TO THE ER AT ANY TIME (24 HOURS A DAY). IF YOU ARE HAVING SEVERE OR LIFE THREATENING SYMPTOMS, OR SYMPTOMS THAT MAKE IT UNSAFE TO DRIVE OR HAVE SOMEONE DRIVE YOU, PLEASE CALL 911. PLEASE FOLLOW UP WITH A PHARMACY SERVICES REPRESENTATIVE (LUNG DOCTOR): DR CADENA YOU HAVE BEEN GIVEN AN INCENTIVE SPIROMETER TO HELP YOU BREATHE TO PREVENT INFECTIONS, PLEASE USE IT EVERY DAY. Print Language: GERMAN - Post Discharge Activity
--- NOTE | 2018-06-28 20:30 | PDOC ---
Attending Attestation - Resident Resident Name: Estrellita Finley - ED Attending Attestation I have performed the following: I have examined & evaluated the patient, The case was reviewed & discussed with the resident, I agree w/resident's findings & plan, Exceptions are as noted - HPI HPI: 06/28/18 20:26 88 yo F with h/o HTN HLD dementia who lives at home here sp fall. h/o frequent fall.s today pt was getting into a sectional sofa, when it slid out from under here. she fell back landing on right side. c/o right side flank pain. no loc no neck pain. no new weakness. pt brought by ems who stats had episodic low oxygen sats en route. no f/c no current complaints other than flan pain . no f/c no nv. - Physicial Exam PE: 06/28/18 20:28 awake alert lungs clear bilaterally. heart rrr no mrg. abd soft nt. right side posterior flank cva ttp. no midline spinal tenderness. hip / pelvis from nt. ext wwp nt from. head atraumatic. nuero alert oriented x 1. moves all four ext. speech clear. skin warm and dry. no appreiciated eccymosis. - Medical Decision Making 06/28/18 20:29 differential: rib fracture, solid organ injurh such as renal or liver injury. infection such as uti, plan labs ekg ct c/a/p. witness fall per family pt did not hit her head. plan xray pelvis, cxr ct . ua signed out to dr geronimo, pending ct c / a / p.
[2018-06-28 20:56] VITALS: BP 148/74
== END 2018-06-28 20:56 | disposition home or self-care (01) ==
LOC: JER 12:56
DX: R10.31 Right lower quadrant pain (principal); R31.9 Hematuria, unspecified; J44.9 Chronic obstructive pulmonary disease, unspecified; I10 Essential (primary) hypertension; E78.5 Hyperlipidemia, unspecified; W18.39XA Other fall on same level, initial encounter; Y93.89 Activity, other specified; Y92.9 Unspecified place or not applicable; Z87.891 Personal history of nicotine dependence; K21.9 Gastro-esophageal reflux disease without esophagitis; F03.90 Unspecified dementia, unspecified severity, without behavioral disturbance, psychotic disturbance, mood disturbance, and anxiety
CPT/HCPCS: 36415; 71260-TC; 72170-TC-FY; 73502-TC-RT; 74177-TC; 80053; 81003; 81015; 82550; 84484; 85025; 85610; 86850; 86900; 86901; 87086; 87186; 93005; 93010; 99282-25

== ENCOUNTER 2019-09-17 18:34 | Emergency (ER) | payer OTHER ==
[2019-09-17 19:01] VITALS: TEMP 97.9; BMI 27.2
--- NOTE | 2019-09-17 19:44 | PDOC ---
Attending Attestation - Resident Resident Name: Lana Mancia - ED Attending Attestation I have performed the following: I have examined & evaluated the patient, The case was reviewed & discussed with the resident, I agree w/resident's findings & plan, Exceptions are as noted - HPI HPI: 09/17/19 19:44 89y F hx dementia, copd, dm, hent, hl, gerd, presents for evaluation sp fall. The patient was in her usual state of health, and is uually wheel chair dependent for ambulation due to unsteady gait. The patient attempted to stand and slid off her wheel chair per family - the fall was unwitnessed as the aide had jus turned around, but the aide immediately turned around when the pt fell and there was no LOC, head injury. Pt has otherwise been doing well without any complaints including fever/chil, cough, n/v, cp, sob, headache, dizziness, changes in feeding habits. Exam: GENERAL: The patient is awake, alert, Nontoxic - in no acute distress. HEAD: Normocephalic, atraumatic. EYES: extraocular movements intact, sclera anicteric, conjunctiva clear. ENT: Normal voice, Moist mucous membranes. NECK: Normal range of motion, supple ABDOMEN: Soft, nontender, No guarding, no rebound. EXTREMITIES: Normal range of motion, no edema. NEUROLOGICAL: No facial assymetry, Normal speech, PSYCH: Normal mood, normal affect. SKIN: Warm, Dry, normal turgor, Back: No midline tenderness to the cervical, thoracic or lumbar spine Musculoskelatal: FROM of b/l shoulders, elbows, wrist. FROM of hips, knees, ankles - No signs of ecchymosis, erythema, or crepitus noted on palpation extremities, chest wall, clavicals, ribs, back. a&p mechanical fall, No apparent signs of trauma or injury will dc with pmd fu return precautions were discussed I discussed the physical exam findings, ancillary test results and final diagnoses with the patient. I answered all of the patient's questions. The patient was satisfied with the care received and felt comfortable with the discharge plan and treatment plan. The patient will call their primary care physician within 24 hours to arrange follow-up and will return to the Emergency Department with any new, persistent or worsening symptoms. - Physicial Exam PE: 09/17/19 20:03 see above - Medical Decision Making 09/17/19 20:03 see above
--- NOTE | 2019-09-17 19:49 | PDOC ---
History of Present Illness - General Chief Complaint: Injury Stated Complaint: FALL Time Seen by Provider: 09/17/19 19:19 - History of Present Illness Initial Comments: Nahomy Donohue is an 89yo woman with Alzheimer's who presents following a fall from her wheelchair at home. Her home economics teacher was a few feet away when the incident occurred but did not see the entire event. The aide reports that Ms Donohue was reaching for something on the floor and slid forward out of her wheelchair. She did not hit her head or neck, and she did not lose consciousness. The pt's daughter and grandson, also at bedside, report that the patient has not complained of any pain since the fall. She has appeared at her baseline and has been behaving normally. She has otherwise recently been well, had no fevers/ chills, has been eating normally, and has not had any unusual symptoms. Past History - Past Medical History Allergies/Adverse Reactions: Allergies Allergy/AdvReac Type Severity Reaction Status Date / Time No Known Allergies Allergy Verified 06/28/18 13:03 Home Medications: Ambulatory Orders Acetaminophen W/ Codeine #3 [Tylenol # 3 -] 1 tab PO Q6H PRN #30 tablet MDD 4 Aspirin [Aspirin EC] 81 mg PO DAILY #30 tablet. 02/22/18 Cyanocobalamin (Vitamin B-12) [Vitamin B-12] 1,000 mcg PO DAILY #30 tablet.er Quetiapine Fumarate [Seroquel -] 25 mg PO HS #30 tablet 02/22/18 Ranitidine [Zantac -] 150 mg PO BID #60 tablet 02/22/18 Sertraline HCl [Zoloft] 25 mg PO DAILY #30 tablet 02/22/18 Simvastatin [Zocor -] 20 mg PO HS #30 tablet 02/22/18 Valsartan [Diovan] 40 mg PO DAILY #30 tablet 02/22/18 Melatonin 5 mg PO HS 06/28/18 COPD: Yes Dementia: Yes Diabetes: Yes GI Disorders: Yes (GERD) HTN: Yes Hypercholesterolemia: Yes - Surgical History Abdominal Surgery: Yes (Fibroidectomy) Appendectomy: Yes - Immunization History Immunization Up to Date: No - Psycho Social/Smoking Cessation Hx Smoking Status: No Smoking History: Never smoked Have you smoked in the past 12 months: No Number of Cigarettes Smoked Daily: 0 If you are a former smoker, when did you quit?: 30 years ago Hx Alcohol Use: No Drug/Substance Use Hx: No Substance Use Type: None Hx Substance Use Treatment: No Review of Systems - Review of Systems Comments:: Obtained from family and HHC aide General: No fevers, no chills, no weight or appetite change, no malaise HEENT: No changes in vision, no changes in hearing, no congestion, no sore throat CV: No chest pain, no palpitations, no LE edema Pulm: No SOB, no cough, no wheezing GI: No nausea or vomiting, no change in bowel habits, no melena : No frequency, no urgency, no dysuria Musc: No back pain, no joint swelling, no recent injury Skin: No rash, no lesions, no erythema Endo: No excessive thirst, no heat/cold intolerance Heme: No unusual bruising or bleeding, no swollen glands Neuro: No syncope, no numbness/tingling, no focal weakness. h/o Alzheimers Vasc: No claudication Psych: No recent change in mood, no SI or HI *Physical Exam - Vital Signs Last Vital Signs Temp Pulse Resp BP Pulse Ox 97.9 F 67 18 150/79 100 09/17/19 18:40 09/17/19 18:40 09/17/19 18:40 09/17/19 18:40 09/17/19 18:40 - Physical Exam General: Comfortable, no acute distress HEENT: Atraumatic, PERRL, EOMI, MMM, voice normal, normal neck ROM Cards: RRR, no murmur appreciated Pulm: Comfortable on room air, clear to auscultation bilaterally Abd: Soft, nontender, nondistended Back: No abrasion, ecchymosis, erythema. No step-offs or deformities Ext: Atraumatic. No LE edema. ROM intact. Strength 5/5 and equal bilaterally Vasc: Extremities WWP. Skin: Normal color, no rashes or lesions Neuro: Awake, alert, CN grossly intact, normal speech, motor/sensory grossly intact and symmetric Psych: Pleasant, cooperative Medical Decision Making - Medical Decision Making 09/17/19 19:41 Nahomy Donohue is an 89yo woman with Alzheimer's who was brought to the ED for evaluation by her family and home health outreach coordinator after she slid out of her wheelchair. Her aide was several feet away when the incident occurred. Ms Donohue has no known head injury, did not lose consciousness, and has not reported any pain. - No apparent injury - Discussed home care for minor pain, bruising with pt's family - D/c home to follow up with PMD as needed Seen with Dr Merna Mancia PGY2 Discharge - Discharge Information Problems reviewed: Yes Clinical Impression/Diagnosis: Fall from wheelchair Qualifiers: Encounter type: initial encounter Qualified Code(s): W05.0XXA - Fall from non- moving wheelchair, initial encounter Condition: Stable Disposition: HOME - Admission No - Follow up/Referral Referrals: Chivo Kendrick [Primary Care Provider] - - Patient Discharge Instructions Additional Instructions: Discharge Instructions: You were seen in the emergency department following a fall. You were not found to have any injury. Home Care and Follow Up: - You may use over the counter medications as needed for pain at home. 650mg acetaminophen (Tylenol) or 400mg ibuprofen (Motrin or Advil) can be used every 6 -8 hours. If needed for continued pain, these medications may be alternated every 3-4 hours. For example, if you take ibuprofen at 9am, you may take acetaminophen at noon, ibuprofen at 3pm, etc. - It is strongly recommended that you take ibuprofen with food to help prevent stomach irritation. - Try using an ice pack for 20 minutes every hour or a heating pad for additional pain control. - Do not stop moving around. As much as you can tolerate, continue to do light exercise and stretching exercises. Increase your activity level as much as you can tolerate daily. - If you have any pain after the next few days, please see your regular doctor for follow up. - Seek immediate medical care if you have significant worsening of your symptoms , any confusion, excessive sleepiness, headache, pain that does not improve with medications, inability to walk, or any other medical emergency. - Post Discharge Activity
[2019-09-17 20:13] VITALS: BP 147/83; PULSE 65
== END 2019-09-17 20:10 | disposition home or self-care (01) ==
LOC: JER 18:34
DX: Z04.3 Encounter for examination and observation following other accident (principal); W05.0XXA Fall from non-moving wheelchair, initial encounter; Y93.89 Activity, other specified; Y92.099 Unspecified place in other non-institutional residence as the place of occurrence of the external cause; G30.9 Alzheimer's disease, unspecified; F02.80 Dementia in other diseases classified elsewhere, unspecified severity, without behavioral disturbance, psychotic disturbance, mood disturbance, and anxiety; Z87.891 Personal history of nicotine dependence; E11.9 Type 2 diabetes mellitus without complications; K21.9 Gastro-esophageal reflux disease without esophagitis; I10 Essential (primary) hypertension; E78.00 Pure hypercholesterolemia, unspecified
CPT/HCPCS: 99282-25